=== PATIENT | male | born 1940 | race Caucasian/White ===

== ENCOUNTER 2018-04-21 12:56 | Inpatient (IN) ==
--- NOTE | 2018-04-21 15:04 | ED ---
HPI General Chief Complaint: Altered Mental Status Stated Complaint: altered mental status-[place] [employer] Time Seen by Provider: 04/21/18 14:45 Source: RN notes reviewed and police Mode of arrival: other (police) Limitations: altered mental status History of Present Illness HPI Narrative: Patient is a 77-year-old male here today via police patrol officer under an involuntary psych evaluation. Her police paperwork stated that patient was standing in his strangers yard looking for an address to give his son to come pick him up he had also been incontinent urine. Patient was unable to provide any information regarding where he lived or family members information per he knew that he was in [facility] but he did not know where he came from or where he was planning on going. Nursing states that when they checked him and he was awake alert and oriented. At this time patient having garbled speech, poor eye contact and is just answering questions with yes no answers he is not speaking in complete sentences. He is a poor historian I do not have any medical history on him at this time. MD complaint: Reports altered mental status Onset (ago): unknown Relieving factors: none Exacerbating factors: none Related Data Home Medications Medication Instructions Recorded Confirmed Unable to Obtain Home Meds 04/21/18 04/21/18 Allergies Allergy/AdvReac Type Severity Reaction Status Date / Time No Known Allergies Allergy Verified 04/21/18 14:50 Review of Systems ROS Unobtainable ROS Unobtainable: unobtainable due to mental status PMFSH Medical History Medical History Lymphoma (Acute) Social History Social History Substance History: No History of Abuse Second Hand Smoke Exposure: Yes Smoking Status: Current every day smoker Tobacco Type: Cigarettes How Often Do You Have a Drink Containing Alcohol: 2 to 3 times a week Recent Travel in [facility] within the Last 8 Weeks: No Recent Out of Country Travel within the Last 8 Weeks: No Exam Narrative Exam Narrative: GENERAL: Pt is flushed, underweight, very thin elderly male. SKIN: Focused skin assessment warm/dry. Flushed HEAD: Atraumatic. Normocephalic. EYES: Pupils equal and round. No scleral icterus. No injection or drainage. ENT: No nasal bleeding or discharge. Mucous membranes pink and moist. NECK: Trachea midline. No JVD. CARDIOVASCULAR: Regular rate and rhythm. No murmur appreciated. Heart sounds are distant. RESPIRATORY: No accessory muscle use. Clear to auscultation. Breath sounds equal bilaterally. Diminished throughout. GASTROINTESTINAL: Abdomen soft, non-tender, nondistended. Hepatic and splenic margins not palpable. MUSCULOSKELETAL: No obvious deformities. No clubbing. No cyanosis. No edema. NEUROLOGICAL: Awake and alert. No obvious cranial nerve deficits. Motor grossly within normal limits. Normal speech. PSYCHIATRIC: Withdrawn mood and affect, poor eye contact; insight and judgment abnormal. Course Initial Documented Vital Signs Temperature 98.0 F 04/21/18 13:00 Pulse Rate 118 H 04/21/18 13:00 Respiratory Rate 16 04/21/18 13:00 Blood Pressure 128/84 04/21/18 13:00 Pulse Oximetry 99 04/21/18 13:00 Last Documented Vital Signs Temperature 98.0 F 04/21/18 13:00 Pulse Rate 130 H 04/21/18 23:07 Respiratory Rate 14 04/21/18 23:07 Blood Pressure 148/92 H 04/21/18 23:07 Pulse Oximetry 98 04/21/18 23:07 Medical Decision Making [facility] Narrative Medical decision making narrative: Medical decision making narrative: During the course of the patients emergency department visit, the patients history, examination, and differential diagnosis were reviewed with the patient. The patient was placed on a hotel room attendant with oximetry and frequent blood pressure monitoring. The patient was initially provided lab work, UA, UDS, EKG, CT brain, chest x- ray. Also administered 1 L normal saline bolus as heart rate was in the 120s when he initially came in. I reevaluated patient has heart rate is down to approximately 110 bpm blood pressure is 114/78 respirations 16 temperature is 98.0 oxygen saturation on room air is 90%. EKG with some artifact showing a rate of 126, WV interval is 208, QRS is 94. Nonspecific T wave changes no STEMI. EKG was signed off by Dr. Syed. The patients laboratory studies were reviewed and remarkable for Mild elevation in MCV and MCH mild elevation in neutrophils negative salicylates negative acetaminophen GFR 62, Cr is 1.15, glucose is 68 AST is 93 urine drug screen is negative, serum alcohol is negative. Radiology studies were reviewed and remarkable for Atrophy and white matter disease noted on CT. CXR No acute cardiopulmonary disease. There is no evidence of pneumonia. I spoke with patient at 1800 he is still not making any sense he states he wonders where his brother is he is unsure how he got here or why he is here. He currently denies any suicidal or homicidal ideation he is cleared for psychiatric evaluation at this time however this could be the beginnings of dementia versus psychotic episode. Patient okay to eat and drink he is tolerating fluids and food at this time no acute distress. Medical Screen Exam Complete: Yes Emergency Medical Condition: Yes Medical Screen Exam Complete: Yes Emergency Medical Condition: Yes Lab Data Lab results reviewed: Yes I reviewed the patient's lab results. Result diagrams: 04/21/18 13:30 04/21/18 13:30 Lab Results 04/21/18 04/21/18 04/21/18 Range/Units 13:30 13:30 13:30 WBC 6.3 (4.0-11.0) th/mm3 RBC 4.29 L (4.50-5.90) mil/mm3 Hgb 15.1 (13.0-17.0) gm/dL Hct 44.8 (39.0-51.0) % MCV 104.3 H (80.0-100.0) fL MCH 35.1 H (27.0-34.0) pg MCHC 33.7 (32.0-36.0) % RDW 14.4 (11.6-17.2) % Plt Count 180 (150-450) th/mm3 MPV 8.8 (7.0-11.0) fL Neut % (Auto) 77.3 H (16.0-70.0) % Lymph % (Auto) 14.0 (9.0-44.0) % [place] % (Auto) 7.6 (0.0-8.0) % Eos % (Auto) 0.4 (0.0-4.0) % Baso % (Auto) 0.7 (0.0-2.0) % Neut # (Auto) 4.9 (1.8-7.7) th/mm3 Lymph # (Auto) 0.9 L (1.0-4.8) th/mm3 [place] # (Auto) 0.5 (0.0-0.9) th/mm3 Eos # (Auto) 0.0 (0.0-0.4) th/mm3 Baso # (Auto) 0.0 (0.0-0.2) th/mm3 WBC Differential . Differential Comment Auto diff final Sodium (136-145) meq/L Potassium (3.5-5.1) meq/L Chloride (98-107) meq/L Carbon Dioxide (21.0-32.0) meq/L Anion Gap (5-15) meq/L BUN (7-18) mg/dL Creatinine (0.60-1.30) mg/dL Estimated GFR (>89) mL/min Random Glucose (74-106) mg/dL Calcium (8.5-10.1) mg/dL Magnesium (1.5-2.5) mg/dL Total Bilirubin (0.2-1.0) mg/dL AST (15-37) U/L ALT (12-78) U/L Alkaline Phosphatase (45-117) U/L Total Protein (6.4-8.2) g/dL Albumin (3.4-5.0) g/dL TSH (0.358-3.740) uIU/mL Urine Color (Yellw/Straw) Urine Clarity (Clear) Urine pH (5.0-8.5) Ur Specific [place] (1.002-1.035) Urine Protein (Neg-Trace) mg/dL Urine Glucose (UA) (Negative) mg/dL Urine Ketones (Negative) mg/dL Urine Occult Blood (Negative) Urine Nitrate (Negative) Urine Bilirubin (Negative) Urine Urobilinogen (Less than 2) mg/dL Ur Leukocyte Esterase (Negative) Urine RBC (0-3) /hpf Urine WBC (0-5) /hpf Urine Mucus (Occasional) /lpf Micro UA Comment Ur Microscopic Review Urine Culture Comments Salicylates Less than 1.7 L (2.8-20.0) mg/dL Urine Opiates Screen (Neg) Acetaminophen Less than 2.0 L (10.0-30.0) mcg/mL Ur Barbiturates Screen (Neg) Ur Amphetamines Screen (Neg) U Benzodiazepines Scrn (Neg) Urine Cocaine Screen (Neg) U Cannabinoids Screen (Neg) Serum Alcohol (0-5) mg/dL 04/21/18 04/21/18 04/21/18 Range/Units 13:30 13:30 13:30 WBC (4.0-11.0) th/mm3 RBC (4.50-5.90) mil/mm3 Hgb (13.0-17.0) gm/dL Hct (39.0-51.0) % MCV (80.0-100.0) fL MCH (27.0-34.0) pg MCHC (32.0-36.0) % RDW (11.6-17.2) % Plt Count (150-450) th/mm3 MPV (7.0-11.0) fL Neut % (Auto) (16.0-70.0) % Lymph % (Auto) (9.0-44.0) % [place] % (Auto) (0.0-8.0) % Eos % (Auto) (0.0-4.0) % Baso % (Auto) (0.0-2.0) % Neut # (Auto) (1.8-7.7) th/mm3 Lymph # (Auto) (1.0-4.8) th/mm3 [place] # (Auto) (0.0-0.9) th/mm3 Eos # (Auto) (0.0-0.4) th/mm3 Baso # (Auto) (0.0-0.2) th/mm3 WBC Differential Differential Comment Sodium 142 (136-145) meq/L Potassium 3.9 (3.5-5.1) meq/L Chloride 108 H (98-107) meq/L Carbon Dioxide 22.0 (21.0-32.0) meq/L Anion Gap 12 (5-15) meq/L BUN 29 H (7-18) mg/dL Creatinine 1.15 (0.60-1.30) mg/dL Estimated GFR 62 L (>89) mL/min Random Glucose 68 L (74-106) mg/dL Calcium 8.8 (8.5-10.1) mg/dL Magnesium 2.3 (1.5-2.5) mg/dL Total Bilirubin 1.0 (0.2-1.0) mg/dL AST 93 H (15-37) U/L ALT 77 (12-78) U/L Alkaline Phosphatase 83 (45-117) U/L Total Protein 7.2 (6.4-8.2) g/dL Albumin 3.9 (3.4-5.0) g/dL TSH 1.020 (0.358-3.740) uIU/mL Urine Color Yellow (Yellw/Straw) Urine Clarity Clear (Clear) Urine pH 5.0 (5.0-8.5) Ur Specific [place] 1.024 (1.002-1.035) Urine Protein Negative (Neg-Trace) mg/dL Urine Glucose (UA) Negative (Negative) mg/dL Urine Ketones Trace H (Negative) mg/dL Urine Occult Blood Negative (Negative) Urine Nitrate Negative (Negative) Urine Bilirubin Negative (Negative) Urine Urobilinogen Less than 2 (Less than 2) mg/dL Ur Leukocyte Esterase Negative (Negative) Urine RBC Less than 1 (0-3) /hpf Urine WBC 1 (0-5) /hpf Urine Mucus Few H (Occasional) /lpf Micro UA Comment Culture not ind Ur Microscopic Review Not Reportable Urine Culture Comments Culture not ind Salicylates (2.8-20.0) mg/dL Urine Opiates Screen Neg (Neg) Acetaminophen (10.0-30.0) mcg/mL Ur Barbiturates Screen Neg (Neg) Ur Amphetamines Screen Neg (Neg) U Benzodiazepines Scrn Neg (Neg) Urine Cocaine Screen Neg (Neg) U Cannabinoids Screen Neg (Neg) Serum Alcohol Less than 3 (0-5) mg/dL Imaging Data Radiologist's impression: Chest X-Ray 04/21/18 14:50 CONCLUSION: No acute cardiopulmonary disease. There is no evidence of pneumonia. Head CT 04/21/18 14:50 CONCLUSION: 1. Atrophy and white matter disease. . Discharge Plan Discharge Disposition Patient Disposition: Sign Out(ED Internal Use Only) Discharge Condition Condition: Stable Discharge Details Diagnosis: Altered mental status Physicians Team ED Provider: Amanda Quan ED Midlevel Provider: Cris Nova Primary Care Provider: Primary Care MaraiSelma Rxs /Orders / Referrals /Forms Prescriptions: No Action Unable to Obtain Home Meds RF: 0 Status ED Status: Medically Cleared
--- NOTE | 2018-04-21 15:32 | XR ---
EXAM DATE: 04/21/2018 3:28 PM EST AGE/SEX: 77 years / Male INDICATIONS: . Cough. CLINICAL DATA: This is the patient's initial encounter. Patient reports that signs and symptoms have been present for 1 day and indicates a pain score of 0/10. MEDICAL/SURGICAL HISTORY: Non-responsive. . Infusaport. COMPARISON: No prior exams available for comparison. FINDINGS: PA and lateral views of the chest demonstrate the lungs to be symmetrically aerated without evidence of mass, infiltrate or effusion. The cardiomediastinal contours are unremarkable. Osseous structures are intact. There is a right sided implantable port catheter with the tip in the superior vena cava. CONCLUSION: No acute cardiopulmonary disease. There is no evidence of pneumonia. Electronically signed by: Crispin Cervantes MD 04/21/2018 3:31 PM EST
[2018-04-21 16:31] LABS: Amphetamine Screen,Urine Neg (Neg); Barbiturate Screen,Urine Neg (Neg); Cannabinoid Screen,Urine Neg (Neg); Cocaine Screen,Urine Neg (Neg)
[2018-04-21 16:34] LABS: Bilirubin,Urine Negative (Negative); Clarity,Urine Clear (Clear); Color,Urine Yellow (Yellw/Straw); Glucose,Urine (UA) Negative (Negative); Leukocyte Esterase,Urine Negative (Negative); Mucus,Urine Few /lpf (Occasional); Nitrite,Urine Negative (Negative); Specific Gravity,Urine 1.024 (1.002-1.035)
[2018-04-21 16:40] LABS: Baso % (Auto) 0.7 % (0.0-2.0); Eos % (Auto) 0.4 % (0.0-4.0); Hematocrit 44.8 % (39.0-51.0); Hemoglobin 15.1 gm/dL (13.0-17.0); Lymph # (Auto) 0.9 th/mm3 (1.0-4.8); Mean Corpuscular HGB Conc 33.7 % (32.0-36.0); Mean Corpuscular Hemoglobin 35.1 pg (27.0-34.0); Mean Corpuscular Volume 104.3 fL (80.0-100.0); Mean Platelet Volume 8.8 fL (7.0-11.0); Mono # (Auto) 0.5 th/mm3 (0.0-0.9); Mono % (Auto) 7.6 % (0.0-8.0); Neut # (Auto) 4.9 th/mm3 (1.8-7.7); Neut % (Auto) 77.3 % (16.0-70.0); Platelet Count 180 th/mm3 (150-450); Red Blood Count 4.29 mil/mm3 (4.50-5.90); Red Cell Distribution Width 14.4 % (11.6-17.2); White Blood Count 6.3 th/mm3 (4.0-11.0)
[2018-04-21 16:43] LABS: Opiate Screen,Urine Neg (Neg)
--- NOTE | 2018-04-21 17:24 | CT ---
EXAM DATE: 04/21/2018 5:18 PM EST AGE/SEX: 77 years / Male INDICATIONS: Altered mental status. CLINICAL DATA: This is the patient's initial encounter. Patient reports that signs and symptoms have been present for 1 day and indicates a pain score of 0/10. MEDICAL/SURGICAL HISTORY: None. None. RADIATION DOSE: 44.87 CTDI (mGy) COMPARISON: No prior exams available for comparison. TECHNIQUE: CT of the head without contrast. Using automated exposure control and adjustment of the mA and/or kV according to patient size, radiation dose was kept as low as reasonably achievable to ob tain optimal diagnostic quality images. DICOM format image data is available electronically for revi ew and comparison. FINDINGS: There is diffuse prominence of the CSF spaces, ventricles and cisterns. There is patchy hypodensity i n the bilateral centrum semiovale and periventricular white matter. No fractures are seen. No signs o f intracranial hemorrhage or mass. No signs of acute infarct. CONCLUSION: 1. Atrophy and white matter disease. . Electronically signed by: Blas Granda MD 04/21/2018 5:23 PM EST
[2018-04-21 17:42] LABS: Alkaline Phosphatase 83 U/L (45-117); Total Protein 7.2 g/dL (6.4-8.2)
[2018-04-21 17:46] LABS: Alanine Aminotransferase 77 U/L (12-78); Albumin 3.9 g/dL (3.4-5.0); Anion Gap 12 meq/L (5-15); Aspartate Aminotransferase 93 U/L (15-37); Blood Urea Nitrogen 29 mg/dL (7-18); Calcium 8.8 mg/dL (8.5-10.1); Chloride 108 meq/L (98-107); Glomerular Filtration Rate 62 mL/min (>89); Glucose,Random 68 mg/dL (74-106); Magnesium 2.3 mg/dL (1.5-2.5); Potassium 3.9 meq/L (3.5-5.1); Sodium 142 meq/L (136-145)
[2018-04-21] MEDS ORDERED: Sodium Chlor 0.9% Inj 500 ML IV.SIG SCH (18:00)
--- NOTE | 2018-04-22 08:35 | ECG ---
Date Performed: 04/21/2018 Time Performed: 16:58:47 PTAGE: 77 years EKG: Sinus tachycardia NONSPECIFIC ST & T-WAVE ABNORMALITY ABNORMAL RHYTHM ECG PREVIOUS TRACING : 03/08/2000 10.48 DOCTOR: Cristiano Valadez Interpretating Date/Time 04/22/2018 08:32:49
--- NOTE | 2018-04-22 10:20 | ED ---
HPI - Psych - General Source: patient, family, RN notes reviewed, police Mode of arrival: other (police) Limitations: altered mental status - History of Present Illness complaint: other Onset (ago): hour(s) Duration: intermittent History of same: No Relieving factors: none Exacerbating factors: none Context: other (Possibly not caring for herself) Associated psychiatric symptoms: none Associated symptoms: denies other symptoms Treatments prior to arrival: placed on mental health hold If self harm: other (Denies any) - General Chief Complaint: Altered Mental Status Stated Complaint: altered mental status-[place] FLORES Time Seen by Provider: 04/22/18 09:45 - History of Present Illness HPI Narrative: History of Present Illness HPI Narrative: Patient is a 77-year-old, male, retired from [employer], lives by himself, with no previous psychiatric history, here via police manager under an involuntary psych evaluation. The [place] act states that the patient was standing in a stranger's yard looking for an address to give to his son to pick him up. He had urinated his pants that had no cell phone to contact his son. He reported he had not eaten in 19 hours and could not provide any more information for home, family or friends. The patient was brought to the emergency department for further evaluation. On his arrival to the ED he is described as" having garbled speech, poor eye contact and is just answering questions with yes no answers he is not speaking in complete sentences. He is a poor historian I do not have any medical history on him at this time." The patients laboratory studies were reviewed and remarkable for Mild elevation in MCV and MCH mild elevation in neutrophils negative salicylates negative acetaminophen GFR 62, Cr is 1.15, glucose is 68 AST is 93 urine drug screen is negative, serum alcohol is negative. Radiology studies remarkable for Atrophy and white matter disease noted on CT. CXR No acute cardiopulmonary disease. There is no evidence of pneumonia. Patient was monitored overnight in the ED and he presented no behavioral concerns. EMR is reviewed the patient with no previous contact with [facility] psychiatry. Patient is seen. He is found finishing his breakfast. He is alert, oriented to person, tells me is 2017, he knows that the president is Gamal Nicholasjared. When asked his age he states " age is nothing but a number and you are as old as you feel." The patient answers most questions appropriately with complete sentences. He tells me that he is unaware of why they brought him to the hospital and does admit that he was some more around [place]. Tells me he has been having some difficulty with neighbors and that he was walking around the neighborhood when a lady asked him if he was okay and that he was brought to the hospital. He tells me that he had been walking around probably since Saturday and that he had not eaten in several hours. The patient does not appear to be responding to internal stimuli. He denies any hallucinations. He denies any suicidal or homicidal ideation and when asked directly states" I let mother nature take care of that." I placed a call to his son Luke, at [phone]. His son tells me that the patient has no previous psychiatric history and that this is his first incident of wandering. Patient moved to [facility] in October and previously had been living with the son in [facility]. Son tells me that he received a call from a friend on Saturday telling him that they had not seen his dad for several days. He questions whether his father is taking care of himself. He did corroborate that the father had several storage facilities where he is keeping his belongings. The son did tell me he will drive back to [facility] today to pick his dad up from the hospital. (Jojo Cerna) - Related Data Home Medications Medication Instructions Recorded Confirmed Unable to Obtain Home Meds 04/21/18 04/21/18 Allergies Allergy/AdvReac Type Severity Reaction Status Date / Time No Known Allergies Allergy Verified 04/21/18 14:50 [facility] History Provided By: Patient - Medical History Medical History: Medical History (Last Updated 04/21/18 @ 16:30 by Jeanette Holbrook RN) Lymphoma - Social History I have reviewed the patient's Social History: Yes - Tobacco History Second Hand Smoke Exposure: Yes Tobacco Use In Past 30 Days: Yes Smoking Status: Current every day smoker Tobacco Type: Cigarettes - Alcohol History How Often Do You Have a Drink Containing Alcohol: 2 to 3 times a week - Substance Use History Substance History: No History of Abuse - Travel History Recent Travel in the [facility] Within the Last 8 Weeks: No Recent Travel Out of the Country Within the Last 8 Weeks: No - Immunization History Tetanus Immunization: <5 Years Psychiatric History - Psychiatric History Psychiatric Treatment History: Denies Previous Treatment History of Inpatient Treatment: No Firearms in Home: No - Psychiatric History None reported by patient and by family members. (Jojo Cerna) - Legal History None reported (Jojo Cerna) - Family Psychiatric History None reported (Jojo Cerna) Physical Exam - General Limitations: altered mental status Mental Status Examination Consciousness: Alert Orientation: x4 Motor Activity: Normal gait Speech: Unremarkable Language: Adequate Fund of Knowledge: Adequate Attention and Concentration: Adequate Memory: Impaired Mood: Appropriate Affect: Appropriate Thought Process & Associations: Intact, Logical, Goal directed Thought Content: Appropriate Hallucination Type: None Delusion Type: None Suicidal Ideation: No Suicidal Plan: No Suicidal Intention: No Homicidal Ideation: No Homicidal Plan: No Homicidal Intention: No Insight: Poor Judgment: Poor Initial Documented Vital Signs Temperature 98.0 F 04/21/18 13:00 Pulse Rate 118 H 04/21/18 13:00 Respiratory Rate 16 04/21/18 13:00 Blood Pressure 128/84 04/21/18 13:00 Pulse Oximetry 99 04/21/18 13:00 Last Documented Vital Signs Temperature 97.8 F 04/22/18 07:00 Pulse Rate 88 04/22/18 14:01 Respiratory Rate 16 04/22/18 14:01 Blood Pressure 118/78 04/22/18 14:01 Pulse Oximetry 100 04/22/18 14:01 [facility] - Psych - Diagnosis (1) Altered mental status Code(s): R41.82 - Altered mental status, unspecified Status: Acute - Lab Data Result diagrams: 04/21/18 13:30 04/21/18 13:30 - [facility] Narrative Medical decision making narrative: At the time of this evaluation the patient does not present any criteria to remain under the [place] act. He presents no evidence of unstable mental illness as defined under such act. He has no previous psychiatric history and is denying any suicidal or homicidal ideation, intent or plan. There is no evidence of any psychosis. However the patient may not have been taking care of himself and most likely had been wandering around the neighborhood for several hours. He admits he had not been eating or drinking. The patient at this time is not safe to be discharge to his own care. His son has agreed to come to the hospital today and pick him up. The BA is lifted. Case discussed with provider Cris in D pod. (Jojo Cerna) - Lab Data Lab Results 04/21/18 04/21/18 04/21/18 Range/Units 13:30 13:30 13:30 WBC 6.3 (4.0-11.0) th/mm3 RBC 4.29 L (4.50-5.90) mil/mm3 Hgb 15.1 (13.0-17.0) gm/dL Hct 44.8 (39.0-51.0) % MCV 104.3 H (80.0-100.0) fL MCH 35.1 H (27.0-34.0) pg MCHC 33.7 (32.0-36.0) % RDW 14.4 (11.6-17.2) % Plt Count 180 (150-450) th/mm3 MPV 8.8 (7.0-11.0) fL Neut % (Auto) 77.3 H (16.0-70.0) % Lymph % (Auto) 14.0 (9.0-44.0) % Gray % (Auto) 7.6 (0.0-8.0) % Eos % (Auto) 0.4 (0.0-4.0) % Baso % (Auto) 0.7 (0.0-2.0) % Neut # (Auto) 4.9 (1.8-7.7) th/mm3 Lymph # (Auto) 0.9 L (1.0-4.8) th/mm3 Gray # (Auto) 0.5 (0.0-0.9) th/mm3 Eos # (Auto) 0.0 (0.0-0.4) th/mm3 Baso # (Auto) 0.0 (0.0-0.2) th/mm3 WBC Differential . Differential Comment Auto diff final Sodium (136-145) meq/L Potassium (3.5-5.1) meq/L Chloride (98-107) meq/L Carbon Dioxide (21.0-32.0) meq/L Anion Gap (5-15) meq/L BUN (7-18) mg/dL Creatinine (0.60-1.30) mg/dL Estimated GFR (>89) mL/min Random Glucose (74-106) mg/dL Calcium (8.5-10.1) mg/dL Magnesium (1.5-2.5) mg/dL Total Bilirubin (0.2-1.0) mg/dL AST (15-37) U/L ALT (12-78) U/L Alkaline Phosphatase (45-117) U/L Total Protein (6.4-8.2) g/dL Albumin (3.4-5.0) g/dL TSH (0.358-3.740) uIU/mL Urine Color (Yellw/Straw) Urine Clarity (Clear) Urine pH (5.0-8.5) Ur Specific [place] (1.002-1.035) Urine Protein (Neg-Trace) mg/dL Urine Glucose (UA) (Negative) mg/dL Urine Ketones (Negative) mg/dL Urine Occult Blood (Negative) Urine Nitrate (Negative) Urine Bilirubin (Negative) Urine Urobilinogen (Less than 2) mg/dL Ur Leukocyte Esterase (Negative) Urine RBC (0-3) /hpf Urine WBC (0-5) /hpf Urine Mucus (Occasional) /lpf Micro UA Comment Ur Microscopic Review Urine Culture Comments Salicylates Less than 1.7 L (2.8-20.0) mg/dL Urine Opiates Screen (Neg) Acetaminophen Less than 2.0 L (10.0-30.0) mcg/mL Ur Barbiturates Screen (Neg) Ur Amphetamines Screen (Neg) U Benzodiazepines Scrn (Neg) Urine Cocaine Screen (Neg) U Cannabinoids Screen (Neg) Serum Alcohol (0-5) mg/dL 04/21/18 04/21/18 04/21/18 Range/Units 13:30 13:30 13:30 WBC (4.0-11.0) th/mm3 RBC (4.50-5.90) mil/mm3 Hgb (13.0-17.0) gm/dL Hct (39.0-51.0) % MCV (80.0-100.0) fL MCH (27.0-34.0) pg MCHC (32.0-36.0) % RDW (11.6-17.2) % Plt Count (150-450) th/mm3 MPV (7.0-11.0) fL Neut % (Auto) (16.0-70.0) % Lymph % (Auto) (9.0-44.0) % Gray % (Auto) (0.0-8.0) % Eos % (Auto) (0.0-4.0) % Baso % (Auto) (0.0-2.0) % Neut # (Auto) (1.8-7.7) th/mm3 Lymph # (Auto) (1.0-4.8) th/mm3 Gray # (Auto) (0.0-0.9) th/mm3 Eos # (Auto) (0.0-0.4) th/mm3 Baso # (Auto) (0.0-0.2) th/mm3 WBC Differential Differential Comment Sodium 142 (136-145) meq/L Potassium 3.9 (3.5-5.1) meq/L Chloride 108 H (98-107) meq/L Carbon Dioxide 22.0 (21.0-32.0) meq/L Anion Gap 12 (5-15) meq/L BUN 29 H (7-18) mg/dL Creatinine 1.15 (0.60-1.30) mg/dL Estimated GFR 62 L (>89) mL/min Random Glucose 68 L (74-106) mg/dL Calcium 8.8 (8.5-10.1) mg/dL Magnesium 2.3 (1.5-2.5) mg/dL Total Bilirubin 1.0 (0.2-1.0) mg/dL AST 93 H (15-37) U/L ALT 77 (12-78) U/L Alkaline Phosphatase 83 (45-117) U/L Total Protein 7.2 (6.4-8.2) g/dL Albumin 3.9 (3.4-5.0) g/dL TSH 1.020 (0.358-3.740) uIU/mL Urine Color Yellow (Yellw/Straw) Urine Clarity Clear (Clear) Urine pH 5.0 (5.0-8.5) Ur Specific [place] 1.024 (1.002-1.035) Urine Protein Negative (Neg-Trace) mg/dL Urine Glucose (UA) Negative (Negative) mg/dL Urine Ketones Trace H (Negative) mg/dL Urine Occult Blood Negative (Negative) Urine Nitrate Negative (Negative) Urine Bilirubin Negative (Negative) Urine Urobilinogen Less than 2 (Less than 2) mg/dL Ur Leukocyte Esterase Negative (Negative) Urine RBC Less than 1 (0-3) /hpf Urine WBC 1 (0-5) /hpf Urine Mucus Few H (Occasional) /lpf Micro UA Comment Culture not ind Ur Microscopic Review Not Reportable Urine Culture Comments Culture not ind Salicylates (2.8-20.0) mg/dL Urine Opiates Screen Neg (Neg) Acetaminophen (10.0-30.0) mcg/mL Ur Barbiturates Screen Neg (Neg) Ur Amphetamines Screen Neg (Neg) U Benzodiazepines Scrn Neg (Neg) Urine Cocaine Screen Neg (Neg) U Cannabinoids Screen Neg (Neg) Serum Alcohol Less than 3 (0-5) mg/dL
--- NOTE | 2018-04-22 23:07 | P.HPIM ---
History of Present Illness Service: [facility] Primary Care Physician: No Primary Care Physician Chief Complaint: Patient found wandering in a neighborhood History of Present Illness: Mr. Guerrero is a 77 year-old male with a possible history of lymphoma who presented to the ER on 04/22/2018 escorted by the police under [place] Act for evaluation after he was found disoriented and wandering around a neighborhood in [place] with urine soaked pants looking for his son. He was evaluated by the psychiatric HIGHWAY DESIGN ENGINEER for psychiatry and she lifted the Batista Act following her evaluation. The patient is being kept here pending placement after the patient's family refused to pick him up from the hospital [facility]. He is unable to provide me with any specific medical information. He does acknowledge being diagnosed with lymphoma but he is tangential when discussing this and is unable to tell me any of the treatment he had for it or the names of any doctors he saw for it. He denies taking any medications. He can seem very oriented at times but fails to be able to provide any specific details about himself and he is a very difficult and poor historian. Review of Systems unobtainable due to mental status PMFSH - History History Provided By: Patient - Medical History Medical History: Medical History (Last Updated 04/22/18 @ 23:31 by LEIDY Fontenot) Lymphoma Onset Date: ~1947 - Surgical History Surgical History: Surgical History (Last Updated 04/22/18 @ 23:31 by LEIDY Fontenot) History of tonsillectomy - Family History Family History: Family History (Last Updated 04/22/18 @ 23:31 by LEIDY Fontenot) Other No significant family history - Social History I have reviewed the patient's Social History: Yes - Tobacco History Second Hand Smoke Exposure: Yes Tobacco Use In Past 30 Days: Yes Smoking Status: Current every day smoker Tobacco Type: Cigarettes - Alcohol History How Often Do You Have a Drink Containing Alcohol: 2 to 3 times a week - Substance Use History Substance History: No History of Abuse - Travel History Recent Travel in the [facility] Within the Last 8 Weeks: No Recent Travel Out of the Country Within the Last 8 Weeks: No - Immunization History Tetanus Immunization: <5 Years Medications and Allergies Allergies Allergy/AdvReac Type Severity Reaction Status Date / Time No Known Allergies Allergy Verified 04/21/18 14:50 Home Medications Medication Instructions Recorded Confirmed Type Unable to Obtain Home Meds 04/21/18 04/21/18 History Exam Vital signs: Vital Signs 04/22/18 07:00 04/22/18 14:01 04/22/18 18:44 Temperature 97.8 F 98.0 F Pulse Rate 93 H 88 74 Respiratory Rate 16 16 16 Blood Pressure 112/72 118/78 124/78 Pulse Oximetry 99 100 99 04/22/18 22:00 Temperature Pulse Rate 96 H Respiratory Rate 18 Blood Pressure 130/80 Pulse Oximetry 100 Intake & Output 04/22/18 04/22/18 04/23/18 06:59 18:59 06:59 Output Total 250 / 250 Balance -250 / -250 Output: Urine 250 / 250 Narrative: GENERAL: This is an disheveled, unkempt and tangential elderly male patient, in no apparent distress. SKIN: Scratches noted on left upper leg. Cool and dry. HEAD: Atraumatic. Normocephalic. EYES: No scleral icterus. No injection or drainage. ENT: Nose without bleeding, purulent drainage. Poor dentition with missing teeth. NECK: Trachea midline. No JVD or lymphadenopathy. CARDIOVASCULAR: Regular rate and rhythm without murmurs, gallops, or rubs. RESPIRATORY: Clear to auscultation. Breath sounds equal bilaterally. No wheezes , rales, or rhonchi. GASTROINTESTINAL: Abdomen soft, non-tender, nondistended. No guarding. MUSCULOSKELETAL: Extremities without clubbing, cyanosis, or edema. No calf tenderness. NEUROLOGICAL: Awake and alert. Motor and sensory grossly within normal limits. Normal speech. Poor recall/memory regarding address, situations, medical history. . Results - Labs CBC & Chem 7: 04/21/18 13:30 04/21/18 13:30 Caprini VTE Risk Assessment Caprini VTE Risk Assessment: Moderate/High Risk (score >= 2) Caprini Risk Assessment Model: Point Value = 1 Point Value = 2 Point Value = 3 Point Value = 5 Age 41-60 Minor surgery BMI > 25 kg/m2 Swollen legs Varicose veins or History of unexplained or recurrent spontaneous Oral contraceptives or hormone replacement Sepsis (< 1 month) Serious lung disease, including pneumonia (< 1 month) Abnormal pulmonary function Acute myocardial infarction Congestive heart failure (< 1 month) History of inflammatory bowel disease Medical patient at bed rest Age 61-74 Arthroscopic surgery Major open surgery (> 45 min) Laparoscopic surgery (> 45 min) Malignancy Confined to bed (> 72 hours) Immobilizing plaster cast Central venous access Age >= 75 History of VTE Family history of VTE Factor V Leiden Prothrombin [id number] Lupus anticoagulant Anticardiolipin antibodies Elevated serum homocysteine Heparin-induced thrombocytopenia Other congenital or acquired thrombophilia Stroke (< 1 month) Elective arthroplasty Hip, pelvis, or leg fracture Acute spinal cord injury (< 1 month) Prophylaxis Regimen: Total Risk Factor Score Risk Level Prophylaxis Regimen 0-1 Low Early ambulation 2 Moderate Order ONE of the following: *Sequential Compression Device (SCD) *Heparin 5000 units SQ BID 3-4 Higher Order ONE of the following medications: *Heparin 5000 units SQ TID *Enoxaparin/Lovenox 40 mg SQ daily (WT < 150 kg, CrCl > 30 mL/min) *Enoxaparin/Lovenox 30 mg SQ daily (WT < 150 kg, CrCl > 10-29 mL/min) *Enoxaparin/Lovenox 30 mg SQ BID (WT < 150 kg, CrCl > 30 mL/min) AND/OR *Sequential Compression Device (SCD) 5 or more Highest Order ONE of the following medications: *Heparin 5000 units SQ TID (Preferred with Epidurals) *Enoxaparin/Lovenox 40 mg SQ daily (WT < 150 kg, CrCl > 30 mL/min) *Enoxaparin/Lovenox 30 mg SQ daily (WT < 150 kg, CrCl > 10-29 mL/min) *Enoxaparin/Lovenox 30 mg SQ BID (WT < 150 kg, CrCl > 30 mL/min) AND *Sequential Compression Device (SCD) Assessment and Plan - Plan Mr. Guerrero is a 77 year-old male with a possible history of lymphoma who presented to the ER on 04/22/2018 escorted by the police under [employer] Act for evaluation after he was found disoriented and wandering around a neighborhood in [place] with urine soaked pants looking for his son. He was evaluated by the psychiatric HIGHWAY DESIGN ENGINEER for psychiatry and she lifted the Batista Act following her evaluation. The patient is being kept here pending placement after the patient's family refused to pick him up from the hospital tonight. He is unable to provide me with any specific medical information. He does acknowledge being diagnosed with lymphoma but he is tangential when discussing this and is unable to tell me any of the treatment he had for it or the names of any doctors he saw for it. He denies taking any medications. He can seem very oriented at times but fails to be able to provide any specific details about himself and he is a very difficult and poor historian. Unsafe discharge -Mandatory outpatient referral to assist with discharge planning/possible residential placement; DCF involved -Hopefully family members will show and can assist with medical history - the patient denies taking any medications at home -Regular diet -Head CT with atrophy and white matter disease -Toxicology negative including alcohol -UA not consistent with UTI -Chest x-ray without acute cardiopulmonary process noted -Blood work consistent with mild dehydration -patient able to take p.o. fluids; no significant findings - continue to monitor DVT prophylaxis -Heparin 5000 units sub q q8h Discussed Condition With: patient, Dr. Steinberg, and RN
[2018-04-23] MEDS: Heparin - SQ 10,000 UNITS/ML Vial SQ SCH ×3 (09:21→21:14)
--- NOTE | 2018-04-23 21:58 | ECG ---
Date Performed: 04/23/2018 Time Performed: 02:59:21 PTAGE: 77 years EKG: ATRIAL FLUTTER/TACHYCARDIA Minimal Voltage criteria for LVH with nonspecific ST changes ABN ORMAL RHYTHM ECG PREVIOUS TRACING : 04/21/2018 16.58 Since the previous tracing, no significant change noted DOCTOR: Fili Shafer Interpretating Date/Time 04/23/2018 21:56:38
[2018-04-24] MEDS: Heparin - SQ 10,000 UNITS/ML Vial SQ SCH ×3 (07:00→21:50)
[2018-04-24 16:30] LABS: Baso % (Auto) 0.8 % (0.0-2.0); Eos # (Auto) 0.2 th/mm3 (0.0-0.4); Eos % (Auto) 3.6 % (0.0-4.0); Hematocrit 40.3 % (39.0-51.0); Hemoglobin 14.1 gm/dL (13.0-17.0); Lymph # (Auto) 0.9 th/mm3 (1.0-4.8); Lymph % (Auto) 17.7 % (9.0-44.0); Mean Corpuscular HGB Conc 34.9 % (32.0-36.0); Mean Corpuscular Hemoglobin 35.3 pg (27.0-34.0); Mean Corpuscular Volume 100.9 fL (80.0-100.0); Mean Platelet Volume 8.7 fL (7.0-11.0); Mono # (Auto) 0.4 th/mm3 (0.0-0.9); Neut # (Auto) 3.5 th/mm3 (1.8-7.7); Neut % (Auto) 69.9 % (16.0-70.0); Platelet Count 153 th/mm3 (150-450); Red Blood Count 3.99 mil/mm3 (4.50-5.90); Red Cell Distribution Width 14.2 % (11.6-17.2)
[2018-04-24 16:53] LABS: Calcium 8.3 mg/dL (8.5-10.1); Carbon Dioxide 27.6 meq/L (21.0-32.0); Magnesium 2.2 mg/dL (1.5-2.5)
[2018-04-24 16:56] LABS: Creatine Kinase 138 U/L (39-308); Troponin I 0.02 ng/mL (0.02-0.05)
[2018-04-24 17:09] LABS: Creatine Kinase MB 4.6 ng/mL (0.5-3.6)
[2018-04-25] MEDS: Heparin - SQ 10,000 UNITS/ML Vial SQ SCH ×4 (05:46→23:35)
--- NOTE | 2018-04-25 08:10 | P.PN ---
Subjective Interval history: The patient was converted from Bedded Outpatient to Observation status due to tachycardia with HR in the 140s. Serial EKGs show atrial flutter and afib with RVR. Telemetry showing afib with RVR, HR ranging 100-140 (increases with exertion). The patient is seen ambulating his room. He denies any current lightheadedness, dizzines, palpitations, chest pain, or shortness of breath. He denies any prior diagnosis of afib or any irregular rhythm. Denies any heart disease. He is able to tell me he's had lymphoma and completed treatment for this in 2016. Physical Exam Vital signs: Vital Signs 04/24/18 13:32 04/24/18 15:59 04/24/18 20:00 Temperature 97.9 F 98.0 F 97.7 F Pulse Rate 129 H 104 H 114 H Respiratory Rate 18 16 20 Blood Pressure 127/85 127/82 120/80 Pulse Oximetry 94 L 100 100 04/24/18 23:58 04/25/18 04:00 04/25/18 07:08 Temperature 97.9 F 97.4 F L 98.2 F Pulse Rate 140 H 118 H 144 H Respiratory Rate 20 16 18 Blood Pressure 128/93 H 130/96 H 134/90 Pulse Oximetry 100 98 100 Intake & Output 04/24/18 04/25/18 04/25/18 18:59 06:59 18:59 Other: Date of Last Bowel Movement 04/22/18 04/24/18 Narrative: GENERAL: Tall thin unkempt appearing elderly male patient in NAD. Ambulating his room. SKIN: Warm and dry. No rash. HEENT: Normocephalic. Atraumatic. Pupils equal and round. Mucous membranes pink and moist. CARDIOVASCULAR: Irregular rate and rhythm. No murmur appreciated. RESPIRATORY: No accessory muscle use. Clear to auscultation. Breath sounds equal bilaterally. GASTROINTESTINAL: Abdomen soft, non-tender, nondistended. Normoactive bowel sounds x4. MUSCULOSKELETAL: No obvious deformities. Extremities without clubbing, cyanosis , or edema. NEUROLOGICAL: Awake and alert. No obvious cranial nerve deficits. Moving all extremities spontaneously. Normal speech. PSYCHIATRIC: Appropriate mood and affect; insight and judgment fair. Results - Labs CBC & Chem 7: 04/24/18 16:04 04/24/18 16:04 Laboratory Results - last 24 hr 04/24/18 04/24/18 04/24/18 16:04 16:04 16:04 WBC 5.0 RBC 3.99 L Hgb 14.1 Hct 40.3 MCV 100.9 H MCH 35.3 H MCHC 34.9 RDW 14.2 Plt Count 153 MPV 8.7 Neut % (Auto) 69.9 Lymph % (Auto) 17.7 [place] % (Auto) 8.0 Eos % (Auto) 3.6 Baso % (Auto) 0.8 Neut # (Auto) 3.5 Lymph # (Auto) 0.9 L [place] # (Auto) 0.4 Eos # (Auto) 0.2 Baso # (Auto) 0.0 WBC Differential . Differential Comment Auto diff final Sodium 142 Potassium 4.0 Chloride 109 H Carbon Dioxide 27.6 Anion Gap 5 BUN 25 H Creatinine 1.25 Estimated GFR 56 L Random Glucose 99 Calcium 8.3 L Magnesium 2.2 Total Creatine Kinase 138 CK-MB (CK-2) 4.6 H Troponin I 0.02 - Imaging Chest X-Ray 04/21/18 14:50 CONCLUSION: No acute cardiopulmonary disease. There is no evidence of pneumonia. Head CT 04/21/18 14:50 CONCLUSION: 1. Atrophy and white matter disease. . Assessment and Plan - Plan Mr. Guerrero is a 77 year-old male with a possible history of lymphoma who presented to the ER on 04/22/2018 escorted by the police under Batista Act for evaluation after he was found disoriented and wandering around a neighborhood in [place] with urine soaked pants looking for his son. He was evaluated by the psychiatric WASTEWATER SUPERVISOR for psychiatry and she lifted the Batista Act following her evaluation. The patient is being kept here pending placement after the patient's family refused to pick him up from the [facility]. He is unable to provide with any specific medical information. He does acknowledge being diagnosed with lymphoma but he is tangential when discussing this and is unable to tell me any of the treatment he had for it or the names of any doctors he saw for it. He denies taking any medications. He can seem very oriented at times but fails to be able to provide any specific details about himself and he is a very difficult and poor historian. Atrial Fibrillation with RVR: acute. HR 100-140s. -monitor on telemetry -[id number] score of 2 due to age although unclear PMH, patient likely poor candidate for anticoagulation due to concern for noncompliance -started on aspirin 325mg and metoprolol 25mg bid -check echocardiogram -consult cardiology Unsafe discharge -Mandatory outpatient referral to assist with discharge planning/possible fpc placement; DCF involved -Hopefully family members will show and can assist with medical history - the patient denies taking any medications at home -Regular diet -Head CT with atrophy and white matter disease -Toxicology negative including alcohol -UA not consistent with UTI -Chest x-ray without acute cardiopulmonary process noted -Blood work consistent with mild dehydration -patient able to take p.o. fluids; no significant findings -continue to monitor DVT prophylaxis-Heparin 5000 units sub q q8h
[2018-04-25] MEDS: Aspirin 325 MG Tablet PO SCH (10:16)
[2018-04-25] MEDS: Metoprolol Tartrate 25 MG Tablet PO SCH ×2 (10:16→20:42)
--- NOTE | 2018-04-25 10:52 | ECG ---
Date Performed: 04/24/2018 Time Performed: 16:22:09 PTAGE: 77 years EKG: ATRIAL FIBRILLATION WITH RAPID VENTRICULAR RESPONSE INCOMPLETE RIGHT BUNDLE BRANCH BLOCK AB NORMAL RHYTHM ECG PREVIOUS TRACING : 04/23/2018 02.59 No significant change from previous tracing noted. DOCTOR: Alex Maier Interpretating Date/Time 04/25/2018 10:51:27
[2018-04-25 11:06] LABS: Bacteria,Urine Moderate /hpf; Bilirubin,Urine Negative (Negative); Clarity,Urine Cloudy (Clear); Glucose,Urine (UA) Negative (Negative); Leukocyte Esterase,Urine Negative (Negative); Mucus,Urine Few /lpf (Occasional); Nitrite,Urine Positive (Negative); Specific Gravity,Urine 1.008 (1.002-1.035)
[2018-04-25 11:07] LABS: Color,Urine Pink (Yellw/Straw)
--- NOTE | 2018-04-25 11:57 | ECHRPT ---
Indication: A FIB FLUTTER CONCLUSIONS Normal left ventricular size. Wall thickness is measured at the upper limits of normal. The left ventricular systolic function is severely reduced with an estimated ejection fraction in th e range of 25-30%. The right ventricular systoilc function is mildly decreased. The left atrial size is moderately dilated. [id number] mitral valve regurgitation. Mild thickening of the aortic valve leaflets. Aortic valve sclerosis is present. Trace aortic valve regurgitation. There is mild tricuspid valve regurgitation. There is estimated mild pulmonary hypertension present (40 mmHg). BP: / HR: Rhythm: Atrial fibrillation Technical Quality: FINDINGS LEFT VENTRICLE Normal left ventricular size. Wall thickness is measured at the upper limits of normal. The left ventricular systolic function is severely reduced with an estimated ejection fraction in th e range of 25-30%. RIGHT VENTRICLE The right ventricular systoilc function is mildly decreased. LEFT ATRIUM The left atrial size is moderately dilated. RIGHT ATRIUM The right atrial size is normal. ATRIAL SEPTUM Thickened atrial septum is noted with morphological features most consistent with a lipomatous atria l septum. AORTA The aortic root and proximal ascending aorta are normal in size on limited imaging. MITRAL VALVE Mitral annular calcification is present. [id number] mitral valve regurgitation. AORTIC VALVE Mild thickening of the aortic valve leaflets. Aortic valve sclerosis is present. Trace aortic valve regurgitation. TRICUSPID VALVE There is mild tricuspid valve regurgitation. There is estimated mild pulmonary hypertension present (40 mmHg). PULMONARY VALVE The pulmonary valve is not well visualized. VESSELS The inferior vena cava is dilated. PERICARDIUM No pericardial effusion. Petrona Naidu MD, FACC (Electronically Signed) Final Date:25 April 2018 11:56
--- NOTE | 2018-04-25 14:32 | P.CONCA ---
History of Present Illness Service: Cardiology Consult date: 04/25/18 Reason for Consult: Atrial fib/flutter, new onset Primary Care Provider: No Primary Care Physician Chief Complaint: Patient found wandering in a neighborhood History of Present Illness: This is a very pleasant 77-year-old male found wondering in a neighborhood on 04/21/18 and was brought into the Emergency Department for further evaluation. He states that he was walking around looking for his son, who was visiting in the area. He is alert but confused to place and time. He denied any CP, pressure, palpitations, dizziness, edema or shortness of breathing at any time. He is a very poor historian and is unable to give a health history. He states that he does not have a PCP or any other doctor at this time. Currently, he denies any CP, pressure, palpitations, dizziness, edema or SOB. Review of Systems All other systems reviewed negative except as stated in HPI [facility] - History History Provided By: Patient - Medical History Medical History: Medical History (Last Reviewed 04/25/18 @ 06:44 by Hernandez Rendon) Lymphoma Onset Date: ~1947 - Surgical History Surgical History: Surgical History (Last Reviewed 04/25/18 @ 06:44 by Hernandez Rendon) History of tonsillectomy - Family History Family History: Family History (Last Updated 04/22/18 @ 23:31 by LEIDY Fontenot) Other No significant family history - Tobacco History Second Hand Smoke Exposure: No Tobacco Use In Past 30 Days: Yes Smoking Status: Never smoker Tobacco Type: Cigarettes - Alcohol History How Often Do You Have a Drink Containing Alcohol: Never - Substance Use History Substance History: No History of Abuse - Travel History Recent Travel in the [place] Within the Last 8 Weeks: No Recent Travel Out of the Country Within the Last 8 Weeks: No - Immunization History Tetanus Immunization: <5 Years Medications and Allergies Allergies Allergy/AdvReac Type Severity Reaction Status Date / Time No Known Allergies Allergy Verified 04/21/18 14:50 Home Medications Medication Instructions Recorded Confirmed Type Unable to Obtain Home Meds 04/21/18 04/21/18 History Active Medications: Active Medications Aspirin (Aspirin) 325 mg PO DAILY [facility] Last Admin: 04/25/18 10:16 Dose: 325 mg Heparin Sodium (Porcine) (Heparin Inj) 5,000 units SQ Q8HR [facility] Last Admin: 04/25/18 05:46 Dose: 5,000 units Lisinopril (Prinivil) 5 mg PO DAILY [facility] Metoprolol Tartrate (Lopressor) 25 mg PO BID [facility] Last Admin: 04/25/18 10:16 Dose: 25 mg Exam Vital signs: Vital Signs 04/24/18 15:59 04/24/18 20:00 04/24/18 23:58 Temperature 98.0 F 97.7 F 97.9 F Pulse Rate 104 H 114 H 140 H Respiratory Rate 16 20 20 Blood Pressure 127/82 120/80 128/93 H Pulse Oximetry 100 100 100 04/25/18 04:00 04/25/18 07:08 04/25/18 10:54 Temperature 97.4 F L 98.2 F 98 F Pulse Rate 118 H 144 H 108 H Respiratory Rate 18 18 Blood Pressure 130/96 H 134/90 138/83 Pulse Oximetry 98 100 100 Intake & Output 04/24/18 04/25/18 04/25/18 18:59 06:59 18:59 Other: Date of Last Bowel Movement 04/22/18 04/24/18 - Constitutional no acute distress - Routine HEENT Exam Head: Present: normocephalic Eye: Present: PERRL ENT: Present: mucous membranes moist - Routine Neck Exam Present: full ROM - Routine Respiratory Exam Present: crackles Comments: fine crackles bilat lower lobes - Routine Cardiovascular Exam Present: S1, S2, irregular rhythm - Routine Abdominal Exam Present: normoactive bowel sounds - Routine Extremities Exam Present: full ROM, pulses intact, normal capillary refill. Absent: cyanosis, clubbing, edema - Routine Skin Exam Present: intact - Routine Neurological Exam Present: alert, altered mental status, moving all extremities Results 04/24/18 16:04 04/24/18 16:04 Cardiac Enzymes 04/24/18 Range/Units 16:04 CK-MB (CK-2) 4.6 H (0.5-3.6) ng/mL Troponin I 0.02 (0.02-0.05) ng/mL CBC 04/24/18 Range/Units 16:04 WBC 5.0 (4.0-11.0) th/mm3 RBC 3.99 L (4.50-5.90) mil/mm3 Hgb 14.1 (13.0-17.0) gm/dL Hct 40.3 (39.0-51.0) % Plt Count 153 (150-450) th/mm3 Neut # (Auto) 3.5 (1.8-7.7) th/mm3 Lymph # (Auto) 0.9 L (1.0-4.8) th/mm3 [place] # (Auto) 0.4 (0.0-0.9) th/mm3 Eos # (Auto) 0.2 (0.0-0.4) th/mm3 Baso # (Auto) 0.0 (0.0-0.2) th/mm3 Comprehensive Metabolic Panel 04/24/18 Range/Units 16:04 Sodium 142 (136-145) meq/L Potassium 4.0 (3.5-5.1) meq/L Chloride 109 H (98-107) meq/L Carbon Dioxide 27.6 (21.0-32.0) meq/L BUN 25 H (7-18) mg/dL Creatinine 1.25 (0.60-1.30) mg/dL Calcium 8.3 L (8.5-10.1) mg/dL Intake and Output 04/24/18 04/25/18 04/25/18 22:59 06:59 14:59 Other: Date of Last Bowel Movement 04/24/18 Assessment and Plan - Assessment (1) Altered mental status Code(s): R41.82 - Altered mental status, unspecified Status: Acute (2) Atrial fib/flutter, transient Status: Acute - Plan Patient is a poor candidate for full anticoagulation due to overall deconditioning and altered mental status. High risk of serious bleeding. We recommend anticoagulation with full dose ASA 325mg. We recommend rate control and CHF treatment with BB's and BEBA/ARB. We will continue to follow the patient during his hospitalization. The patient was seen and evaluated by Dr. Naidu who participated in care, management and decision making. - Attending Attestation Patient seen and examined. I reviewed and agree with the evaluation and plan as presented. Recommend rate control, tx for CHF and full dose aspirin. Increase activity, PT. (1) Altered mental status Qualifiers: Altered mental status type: unspecified Qualified Code(s): R41.82 - Altered mental status, unspecified
[2018-04-26] MEDS: Heparin - SQ 10,000 UNITS/ML Vial SQ SCH ×2 (06:31→14:00)
[2018-04-26 09:18] LABS: HDL Cholesterol 55.3 mg/dL (40.0-60.0)
[2018-04-26] MEDS: Metoprolol Tartrate 25 MG Tablet PO SCH ×2 (09:51→20:34)
[2018-04-26] MEDS: Lisinopril 5 MG Tablet PO SCH (09:51)
[2018-04-26] MEDS: Aspirin 325 MG Tablet PO SCH (09:51)
--- NOTE | 2018-04-26 13:45 | US ---
EXAM DATE: 04/26/2018 1:40 PM EST AGE/SEX: 77 years / Male INDICATIONS: Hematuria. CLINICAL DATA: This is the patient's initial encounter. Patient reports that signs and symptoms have been present for 1 day and indicates a pain score of 1/10. MEDICAL/SURGICAL HISTORY: . Lymphoma. Tonsillectomy. COMPARISON: No prior exams available for comparison. MEASUREMENTS: Right Kidney:__12.1 x 4.6 x 5.4 cm Left Kidney:__12.6 x 3.6 x 5.2 cm FINDINGS: Right Kidney: Renal parenchyma appears normal in thickness and echogenicity. Well-circumscribed simpl e cyst involving the upper pole measuring 4.4 x 4.5 x 4.1 cm. No evidence of hydronephrosis. Left Kidney: Renal parenchyma appears normal in thickness and echotexture. Single small exophytic sim ple cyst. Bladder: Romero catheter identified within the decompressed bladder. Enlarged prostate gland measuring 6.4 x 5.7 x 7.3 cm. Other: None. CONCLUSION: 1. Significant prostatic hypertrophy. The bladder is decompressed. 2. Bilateral simple appearing renal cysts. No evidence of concerning renal mass or hydronephrosis. Electronically signed by: Sherin Park MD Board Certified Radiologist 04/26/2018 1:44 PM ISABELLA King
--- NOTE | 2018-04-26 14:26 | P.PNIM ---
Subjective Interval history: Follow up hematuria, acute urinary retention, atrial fibrillation with RVR, HFrEF Patient is resting in bed. Patient with golf ball size, hard distention on left lower abdomen. Patient also noted to have hematuria. He states he has not been able to urinate. Patient is wearing a diaper. He is slightly confused. He states he has been having blood in his urine since last week. Spoke with patients son Italo over the phone. Son states patient has a history of lymphoma. He underwent 1 treatment back in but has not followed up since. Son states his Father used to live with him but he ended up selling his house in October of this year and his Father wanted to move back up to the [facility]. Son believed that his Father was renting a place for 400 dollars a month. He states he has attempted to reach out to him but was unable to locate him until he started around to different hospitals and morgues. Physical Exam Vital signs: Last Vital Signs Temp 97.6 F 04/26/18 08:00 Pulse 75 04/26/18 11:24 Resp 18 04/26/18 11:24 BP 118/76 04/26/18 11:24 Pulse Ox 99 04/26/18 11:24 Intake & Output 04/24/18 04/25/18 04/26/18 04/27/18 06:59 06:59 06:59 06:59 Intake Total 960 / 960 591 / 591 Output Total 0 / 0 Balance 960 / 960 591 / 591 Narrative: GENERAL: Tall thin unkempt appearing elderly male patient in [facility]. No acute distress. SKIN: Warm and dry. No rash. HEENT: Normocephalic. Atraumatic. Pupils equal and round. Mucous membranes pink and moist. CARDIOVASCULAR: Irregular rate and rhythm. No murmur appreciated. RESPIRATORY: No accessory muscle use. Clear to auscultation. Breath sounds equal bilaterally. GASTROINTESTINAL: Abdomen soft, non-tender, nondistended. Normoactive bowel sounds x4. Hematuria, distended bladder palpable in left lower quadrant. MUSCULOSKELETAL: No obvious deformities. Extremities without clubbing, cyanosis , or edema. NEUROLOGICAL: Awake and alert. No obvious cranial nerve deficits. Moving all extremities spontaneously. Normal speech. PSYCHIATRIC: limited insight and judgement. Urinary Catheter Management Indwelling Urethral Catheter: Cath placed during this visit: yes Urethral indwelling: Yes Reason for continuing: Acute urinary retention (Gross hematuria) Insertion date: 04/26/18 Insertion time: 13:25 Results Labs CBC & Chem 7: 04/26/18 13:28 04/26/18 13:28 Labs: Microbiology 04/25/18 10:15 Clean Catch Urine Urine Culture - Preliminary gram negative rods Imaging Imaging: Impressions Abdomen/Bladder Ultrasound 04/26/18 00:00 CONCLUSION: 1. Significant prostatic hypertrophy. The bladder is decompressed. 2. Bilateral simple appearing renal cysts. No evidence of concerning renal mass or hydronephrosis. Assessment and Plan (1) Altered mental status: Code(s): R41.82 - Altered mental status, unspecified Status: Acute (2) Atrial fib/flutter, transient: Status: Acute Plan Mr. Guerrero is a 77 year-old male with a possible history of lymphoma who presented to the ER on 04/22/2018 escorted by the police under Batista Act for evaluation after he was found disoriented and wandering around a neighborhood in [place] with urine soaked pants looking for his son. He was evaluated by the psychiatric [employer] for psychiatry and she lifted the Batista Act following her evaluation. The patient is being kept here pending placement after the patient's family refused to pick him up from the hospital [facility]. He is unable to provide with any specific medical information. He does acknowledge being diagnosed with lymphoma but he is tangential when discussing this and is unable to tell me any of the treatment he had for it or the names of any doctors he saw for it. He denies taking any medications. He can seem very oriented at times but fails to be able to provide any specific details about himself and he is a very difficult and poor historian. Acute urinary retention -bladder scan shows > 600 ml -blair cath inserted with 800 ml of output -US kidney/renal/bladder completed and shows a decompressed bladder, no hydronephrosis, no renal mass, significant prostatic hypertrophy -added Flomax -Urology consult Gross Hematuria -Urology consulted -hold Heparin and ASA pending Urology evaluation -H/H stable, monitor Q12 hrs x 2 -gentle hydration @ 50 ml/hr 500 ml total 2/2 low EF Prostatic hypertrophy -Flomax -Urology consult Atrial Fibrillation with RVR - now rate controlled -monitor on telemetry -[id number] score of 2 due to age although unclear PMH, patient likely poor candidate for anticoagulation due to concern for noncompliance -started on aspirin 325mg and metoprolol 25mg bid. ASA currently on hold 2/2 hematuria. -echocardiogram shows severely reduced systolic left ventricular function with EF of 25-30% -consult cardiology Systolic heart failure, chronic -see echo findings as noted above -BB, BEBA-I, hold ASA for now d/t hematuria -daily weights, strict I&O, monitor for volume overload Unsafe discharge -Mandatory outpatient referral to assist with discharge planning/possible custodial placement; DCF involved -Hopefully family members will show and can assist with medical history - the patient denies taking any medications at home -Regular diet -Head CT with atrophy and white matter disease -Toxicology negative including alcohol -UA not consistent with UTI -Chest x-ray without acute cardiopulmonary process noted -Blood work consistent with mild dehydration -patient able to take p.o. fluids; no significant findings -continue to monitor MDM: tiana Puckett can be contacted at [phone] Code: Full GI ppx: PPI DVT ppx: hold Heparin d/t hematuria, SCD's Code Status: Full Discussed Condition With: RN, patient, tiana Puckett, [employer] Discharge Planning: Patient may require mandarin tutor placement Progress Note: Quality VTE Deep Vein Thrombosis/Pulmonary Embolism Present on Admission: No _ (1) Altered mental status Qualifiers: Altered mental status type: unspecified Coma depth: Coma timing: Qualified Code(s): R41.82 - Altered mental status, unspecified
[2018-04-26 14:55] LABS: Baso % (Auto) 0.1 % (0.0-2.0); Eos % (Auto) 0.2 % (0.0-4.0); Hematocrit 40.9 % (39.0-51.0); Hemoglobin 13.9 gm/dL (13.0-17.0); Lymph # (Auto) 0.5 th/mm3 (1.0-4.8); Lymph % (Auto) 6.1 % (9.0-44.0); Mean Corpuscular HGB Conc 33.9 % (32.0-36.0); Mean Corpuscular Hemoglobin 34.9 pg (27.0-34.0); Mean Corpuscular Volume 102.9 fL (80.0-100.0); Mean Platelet Volume 8.8 fL (7.0-11.0); Mono # (Auto) 0.6 th/mm3 (0.0-0.9); Mono % (Auto) 7.5 % (0.0-8.0); Neut # (Auto) 7.1 th/mm3 (1.8-7.7); Neut % (Auto) 86.1 % (16.0-70.0); Platelet Count 159 th/mm3 (150-450); Red Blood Count 3.97 mil/mm3 (4.50-5.90); Red Cell Distribution Width 14.3 % (11.6-17.2); White Blood Count 8.3 th/mm3 (4.0-11.0)
[2018-04-26 15:11] LABS: Calcium 8.2 mg/dL (8.5-10.1); Carbon Dioxide 28.4 meq/L (21.0-32.0); Potassium 4.3 meq/L (3.5-5.1)
[2018-04-26 15:34] LABS: Bacteria,Urine Rare /hpf; Bilirubin,Urine Negative (Negative); Clarity,Urine Hazy (Clear); Color,Urine Yellow (Yellw/Straw); Glucose,Urine (UA) Negative (Negative); Leukocyte Esterase,Urine Negative (Negative); Nitrite,Urine Negative (Negative)
[2018-04-26] MEDS ORDERED: Sodium Chlor 0.9% Inj 500 ML IV.CONT SCH (15:46)
--- NOTE | 2018-04-26 16:00 | MB ---
cc: Jose Eppsn Preet DO DATE: 04/26/2018 HISTORY OF PRESENT ILLNESS: This is a 77-year-old male who was brought to the emergency room by his son due to altered mental status. He was recently Batista Acted. The patient states that once he got to the emergency room, he noticed some blood in his urine. A Romero catheter was placed for 800 mL. He has light pink-tinged urine draining from the Romero catheter at the present time. He denies any history of prostate cancer/bladder cancer or prior radiation therapy. He does have a history of lymphoma, which is in remission. He states that he gets up 1-2 times at night to empty his bladder. Abdominal ultrasound in the emergency room showed significant prostatic hypertrophy with decompression of the bladder. No concerning mass or hydronephrosis is noted. ALLERGIES: HE HAS NO KNOWN DRUG ALLERGIES. PAST SURGICAL HISTORY: Noted for tonsillectomy. FAMILY HISTORY: No significant family history is noted. SOCIAL HISTORY: Currently smokes daily. Drinks 2-3 times a week. No history of abuse. Denies any drug usage. REVIEW OF SYSTEMS: Denies chest pain or shortness of breath. Denies abdominal pain. Notes gross hematuria, nocturia 1-2 times. Denies urinary tract infections or stones. No history of prostate cancer is noted. The remaining review of systems were reviewed and were negative. PHYSICAL EXAMINATION: VITAL SIGNS: Today, temperature 97.6, heart rate 75, respiratory 18, 118/76. GENERAL: He is a well-developed, well-nourished, 77-year-old male in no acute distress. HEENT: Normocephalic, atraumatic. Extraocular movements intact. Pupils regular, round and reactive to light. NECK: Supple. HEART: Regular rate and rhythm. LUNGS: Clear. ABDOMEN: Soft, nontender, nondistended. GENITOURINARY: Romero catheter is in position. Normal phallus. Testes are descended. Prostate is 80 grams on exam, smooth with no nodularity. EXTREMITIES: Show no cyanosis, clubbing or edema. NEUROLOGIC: Cranial nerves 2-12 are intact. LABORATORY DATA: White count 8.3, hemoglobin 13.9, hematocrit 40.9, platelet count 159. Sodium 142, potassium 4.3, chloride 107, CO2 of 28.4, BUN 45, creatinine 3.21, up from 1.25. Initial urinalysis on 04/21/2018 shows no blood, less than 1 red cell. Urine culture shows gram-negative rods. ASSESSMENT AND PLAN: This is a 77-year-old male admitted with altered mental status with onset of gross hematuria with negative UA on admission. Hematuria could be due to Romero catheter or to bladder decompression after the Romero catheter was placed. The catheter was advanced at the bedside as I palpated it near the prostatic urethra. Await urine culture results and treat urinary tract infection as appropriate. Continue Flomax 0.4 mg p.o. at bedtime. Monitor urine output for now. We will give a void trial in the few days. May need cystoscopy as an outpatient. Thank you for the consult and allowing me to participate in the care of this patient. DO Nadeem Camilo , 03:35 PM , 03:42 PM
--- NOTE | 2018-04-26 16:33 | P.PNCA ---
Subjective Interval history: Patient denies any CP, pressure, palpitations, dizziness or edema. Patient does complain of mild SOB but states it is not new. Medications and Allergies Allergies Allergy/AdvReac Type Severity Reaction Status Date / Time No Known Allergies Allergy Verified 04/21/18 14:50 Home Medications Medication Instructions Recorded Confirmed Type Unable to Obtain Home Meds 04/21/18 04/21/18 History Active Medications: Active Medications Sodium Chloride (Ns Inj) 500 mls @ 50 mls/hr IV.CONT .Q10H [facility] Stop: 04/27/18 01:45 Lisinopril (Prinivil) 5 mg PO DAILY [facility] Last Admin: 04/26/18 09:51 Dose: 5 mg Metoprolol Tartrate (Lopressor) 25 mg PO BID [facility] Last Admin: 04/26/18 09:51 Dose: 25 mg Ondansetron HCl (Zofran Inj) 4 mg IV.PUSH Q6H PRN PRN Reason: NAUSEA Last Admin: 04/26/18 12:16 Dose: 4 mg Pantoprazole Sodium (Protonix) 40 mg PO DAILY [facility] Tamsulosin HCl (Flomax) 0.4 mg PO DAILY [facility] Physical Exam Vital signs: Vital Signs 04/25/18 19:35 04/25/18 23:57 04/26/18 04:00 Temperature 98.1 F 97.5 F L 97.4 F L Pulse Rate 102 H 68 80 Respiratory Rate 18 18 18 Blood Pressure 132/82 138/87 135/84 Pulse Oximetry 96 98 99 04/26/18 07:15 04/26/18 08:00 04/26/18 11:24 Temperature 97.6 F Pulse Rate 90 105 H 75 Respiratory Rate 18 18 Blood Pressure 128/95 H 118/76 Pulse Oximetry 97 99 04/26/18 11:45 04/26/18 16:00 Temperature Pulse Rate 68 70 Respiratory Rate 16 Blood Pressure 103/60 Pulse Oximetry 100 Intake & Output 04/25/18 04/26/18 04/26/18 18:59 06:59 18:59 Intake Total 591 / 591 Output Total 0 / 0 800 / 800 Balance 591 / 591 -800 / -800 Intake: Oral 591 / 591 Output: Urine 0 / 0 Urine Amount (Catheter) 800 / 800 Indwelling Urethral Catheter 800 / 800 Other: Date of Last Bowel Movement 04/24/18 - Constitutional no acute distress - Routine HEENT Exam Head: Present: normocephalic Eye: Present: PERRL ENT: Present: mucous membranes moist - Routine Neck Exam Present: full ROM - Routine Respiratory Exam Present: CTA bilaterally - Routine Cardiovascular Exam Present: S1, S2, irregular rhythm. Absent: murmur, gallop, rubs - Routine Abdominal Exam Present: normoactive bowel sounds - Routine Extremities Exam Present: full ROM, pulses intact, normal capillary refill. Absent: cyanosis, clubbing, edema - Routine Skin Exam Present: intact - Routine Neurological Exam Present: oriented X3 - Detailed Neurological Exam: Coma Scale Eye Opening: Spontaneous Verbal Response: Oriented Motor Response: Obey commands Kiersten Coma Scale Total: 15 - Routine Psychiatric Exam Present: normal affect - Urinary Catheter Management Indwelling Urethral Catheter Cath placed during this visit: yes Reason for continuing: Acute urinary retention Insertion date: 04/26/18 Insertion time: 13:25 Results 04/26/18 13:28 04/26/18 13:28 Cardiac Enzymes 04/24/18 Range/Units 16:04 CK-MB (CK-2) 4.6 H (0.5-3.6) ng/mL Troponin I 0.02 (0.02-0.05) ng/mL Lipids 04/26/18 Range/Units 07:59 Triglycerides 103 (42-150) mg/dL Cholesterol 166 (120-200) mg/dL HDL Cholesterol 55.3 (40.0-60.0) mg/dL Cholesterol/HDL Ratio 3.00 Ratio CBC 04/24/18 04/26/18 Range/Units 16:04 13:28 WBC 5.0 8.3 (4.0-11.0) th/mm3 RBC 3.99 L 3.97 L (4.50-5.90) mil/mm3 Hgb 14.1 13.9 (13.0-17.0) gm/dL Hct 40.3 40.9 (39.0-51.0) % Plt Count 153 159 (150-450) th/mm3 Neut # (Auto) 3.5 7.1 (1.8-7.7) th/mm3 Lymph # (Auto) 0.9 L 0.5 L (1.0-4.8) th/mm3 [place] # (Auto) 0.4 0.6 (0.0-0.9) th/mm3 Eos # (Auto) 0.2 0.0 (0.0-0.4) th/mm3 Baso # (Auto) 0.0 0.0 (0.0-0.2) th/mm3 Comprehensive Metabolic Panel 04/24/18 04/26/18 Range/Units 16:04 13:28 Sodium 142 142 (136-145) meq/L Potassium 4.0 4.3 (3.5-5.1) meq/L Chloride 109 H 107 (98-107) meq/L Carbon Dioxide 27.6 28.4 (21.0-32.0) meq/L BUN 25 H 45 H (7-18) mg/dL Creatinine 1.25 3.21 H (0.60-1.30) mg/dL Calcium 8.3 L 8.2 L (8.5-10.1) mg/dL Intake and Output 04/26/18 04/26/18 04/26/18 06:59 14:59 22:59 Intake Total 591 / 591 Output Total 0 / 0 800 / 800 Balance 591 / 591 -800 / -800 Intake: Oral 591 / 591 Output: Urine 0 / 0 Urine Amount (Catheter) 800 / 800 Indwelling Urethral Catheter 800 / 800 - Imaging and Cardiology Imaging: Impressions Abdomen/Bladder Ultrasound 04/26/18 00:00 CONCLUSION: 1. Significant prostatic hypertrophy. The bladder is decompressed. 2. Bilateral simple appearing renal cysts. No evidence of concerning renal mass or hydronephrosis. Assessment and Plan - Assessment (1) Altered mental status Code(s): R41.82 - Altered mental status, unspecified Status: Acute (2) Atrial fib/flutter, transient Status: Acute - Plan Patients neuro status has improved, neurology evaluation in progress. Patient currently in atrial flutter with controlled rate. We do not recommend full anticoagulation due to patient's altered mental status and current hematuria, recommend urology evaluation. We will continue with current treatment plan for rate control and CHF with BB's and BEBA/ARBs. We will continue to monitor patient during his hospitalization. The patient was seen and evaluated by Dr. Naidu who participated in care, management and decision making. - Attending Attestation Patient seen and examined. I reviewed and agree with the evaluation and plan as presented. Continue tx for a flutter and CHF. Risk of full anticoagulation higher than its benefit at this time. (1) Altered mental status Qualifiers: Altered mental status type: unspecified Qualified Code(s): R41.82 - Altered mental status, unspecified
[2018-04-27 08:26] LABS: Baso % (Auto) 0.5 % (0.0-2.0); Eos # (Auto) 0.1 th/mm3 (0.0-0.4); Hemoglobin 12.3 gm/dL (13.0-17.0); Lymph # (Auto) 0.8 th/mm3 (1.0-4.8); Lymph % (Auto) 16.3 % (9.0-44.0); Mean Corpuscular HGB Conc 35.2 % (32.0-36.0); Mean Corpuscular Hemoglobin 35.5 pg (27.0-34.0); Mean Corpuscular Volume 100.9 fL (80.0-100.0); Mean Platelet Volume 8.3 fL (7.0-11.0); Mono # (Auto) 0.5 th/mm3 (0.0-0.9); Mono % (Auto) 9.7 % (0.0-8.0); Neut # (Auto) 3.6 th/mm3 (1.8-7.7); Neut % (Auto) 71.5 % (16.0-70.0); Platelet Count 112 th/mm3 (150-450); Red Blood Count 3.46 mil/mm3 (4.50-5.90); Red Cell Distribution Width 13.8 % (11.6-17.2); White Blood Count 5.1 th/mm3 (4.0-11.0)
[2018-04-27] MEDS: Lisinopril 5 MG Tablet PO SCH (08:34)
[2018-04-27] MEDS: Metoprolol Tartrate 25 MG Tablet PO SCH ×2 (08:34→22:08)
[2018-04-27 08:59] LABS: Calcium 7.9 mg/dL (8.5-10.1); Carbon Dioxide 27.1 meq/L (21.0-32.0); Potassium 4.3 meq/L (3.5-5.1)
--- NOTE | 2018-04-27 13:22 | P.PNURO ---
Subjective Patient symptoms today: Pt seen and examined. Feels well. No complaints. Objective Vital Signs: Vital Signs 04/26/18 16:00 04/26/18 19:28 04/26/18 20:00 Temperature 98.0 F Pulse Rate 70 71 91 H Respiratory Rate 16 16 Blood Pressure 103/60 112/63 Pulse Oximetry 100 99 04/26/18 22:42 04/27/18 00:00 04/27/18 04:00 Temperature 98.6 F 98.3 F Pulse Rate 72 73 67 Respiratory Rate 18 16 Blood Pressure 91/50 L 97/55 L Pulse Oximetry 98 98 04/27/18 08:00 04/27/18 08:34 04/27/18 11:00 Temperature 98 F Pulse Rate 70 69 74 Respiratory Rate 18 20 Blood Pressure 113/63 111/58 L Pulse Oximetry 98 95 Intake & Output 04/26/18 04/27/18 04/27/18 18:59 06:59 18:59 Intake Total 500 / 500 100 / 100 Output Total 1300 / 1300 900 / 900 Balance -1300 / -1300 -400 / -400 100 / 100 Weight 64.3 kg Intake: IV 500 / 500 100 / 100 NS Inj 500 ML @ 50 mls/hr IV. 500 / 500 CONT .Q10H [facility] Rx#:[id number] Rocephin Inj 1,000 MG In NS Inj 100 / 100 100 ML @ 200 mls/hr IV.SIG Q24H [facility] Rx#:[id number] Output: Urine Amount (Catheter) 1300 / 1300 900 / 900 Indwelling Urethral Catheter 1300 / 1300 900 / 900 Other: Date of Last Bowel Movement 04/24/18 Result Diagrams: 04/27/18 07:53 04/27/18 07:53 Imaging: Impressions Abdomen/Bladder Ultrasound 04/26/18 00:00 CONCLUSION: 1. Significant prostatic hypertrophy. The bladder is decompressed. 2. Bilateral simple appearing renal cysts. No evidence of concerning renal mass or hydronephrosis. Medications and IVs: Active Medications Generic Name Dose Route Start Last Admin Trade Name Freq PRN Reason Stop Dose Admin Aspirin 325 mg 04/28/18 09:00 Aspirin PO DAILY [facility] Ceftriaxone Sodium 1,000 mg/ 100 mls @ 200 mls/hr 04/27/18 08:00 04/27/18 09: 04 Sodium Chloride IV.SIG Infused Q24H [facility] Infusion Lisinopril 5 mg 04/26/18 09:00 04/27/18 08:34 Prinivil PO 5 mg DAILY [facility] Administration Metoprolol Tartrate 25 mg 04/25/18 09:00 04/27/18 08:34 Lopressor PO 25 mg BID [facility] Administration Ondansetron HCl 4 mg 04/26/18 12:00 04/26/18 12:16 Zofran Inj IV.PUSH 4 mg Q6H PRN Administration NAUSEA Pantoprazole Sodium 40 mg 04/26/18 15:15 04/27/18 08:34 Protonix PO 40 mg DAILY [facility] Administration Tamsulosin HCl 0.4 mg 04/26/18 21:00 04/27/18 08:34 Flomax PO 0.4 mg DAILY [facility] Administration Objective Remarks: Abd:soft,nt,nd Blair: urine clear Assessment and Plan - Plan 77 y.o male with ARF with BPH with obstruction and hematuria after blair insertion Maintain blair as ARF is improving. Creatinine down to 1.5 from 3 Continue Flomax Void trial in the next few days
--- NOTE | 2018-04-27 13:50 | P.PNCA ---
Subjective Interval history: Patient denies any CP, pressure, palpitations, dizziness, edema or SOB. Patient states he feels fine. Medications and Allergies Allergies Allergy/AdvReac Type Severity Reaction Status Date / Time No Known Allergies Allergy Verified 04/21/18 14:50 Home Medications Medication Instructions Recorded Confirmed Type Unable to Obtain Home Meds 04/21/18 04/21/18 History Active Medications: Active Medications Aspirin (Aspirin) 325 mg PO DAILY [facility] Ceftriaxone Sodium 1,000 mg/ (Sodium Chloride) 100 mls @ 200 mls/hr IV.SIG Q24H [facility] Last Infusion: 04/27/18 09:04 Dose: Infused Lisinopril (Prinivil) 5 mg PO DAILY [facility] Last Admin: 04/27/18 08:34 Dose: 5 mg Metoprolol Tartrate (Lopressor) 25 mg PO BID [facility] Last Admin: 04/27/18 08:34 Dose: 25 mg Ondansetron HCl (Zofran Inj) 4 mg IV.PUSH Q6H PRN PRN Reason: NAUSEA Last Admin: 04/26/18 12:16 Dose: 4 mg Pantoprazole Sodium (Protonix) 40 mg PO DAILY [facility] Last Admin: 04/27/18 08:34 Dose: 40 mg Tamsulosin HCl (Flomax) 0.4 mg PO DAILY [facility] Last Admin: 04/27/18 08:34 Dose: 0.4 mg Physical Exam Vital signs: Vital Signs 04/26/18 16:00 04/26/18 19:28 04/26/18 20:00 Temperature 98.0 F Pulse Rate 70 71 91 H Respiratory Rate 16 16 Blood Pressure 103/60 112/63 Pulse Oximetry 100 99 04/26/18 22:42 04/27/18 00:00 04/27/18 04:00 Temperature 98.6 F 98.3 F Pulse Rate 72 73 67 Respiratory Rate 18 16 Blood Pressure 91/50 L 97/55 L Pulse Oximetry 98 98 04/27/18 08:00 04/27/18 08:34 04/27/18 11:00 Temperature 98 F Pulse Rate 70 69 74 Respiratory Rate 18 20 Blood Pressure 113/63 111/58 L Pulse Oximetry 98 95 Intake & Output 04/26/18 04/27/18 04/27/18 18:59 06:59 18:59 Intake Total 500 / 500 100 / 100 Output Total 1300 / 1300 900 / 900 Balance -1300 / -1300 -400 / -400 100 / 100 Weight 64.3 kg Intake: IV 500 / 500 100 / 100 NS Inj 500 ML @ 50 mls/hr IV. 500 / 500 CONT .Q10H [facility] Rx#:[id number] Rocephin Inj 1,000 MG In NS Inj 100 / 100 100 ML @ 200 mls/hr IV.SIG Q24H [facility] Rx#:[id number] Output: Urine Amount (Catheter) 1300 / 1300 900 / 900 Indwelling Urethral Catheter 1300 / 1300 900 / 900 Other: Date of Last Bowel Movement 04/24/18 - Constitutional no acute distress - Routine HEENT Exam Head: Present: normocephalic Eye: Present: PERRL ENT: Present: mucous membranes moist - Routine Neck Exam Present: full ROM - Routine Respiratory Exam Present: CTA bilaterally - Routine Cardiovascular Exam Present: S1, S2, irregular rhythm. Absent: murmur, gallop, rubs - Routine Abdominal Exam Present: normoactive bowel sounds - Routine Extremities Exam Present: full ROM, pulses intact, normal capillary refill. Absent: cyanosis, clubbing, edema - Routine Skin Exam Present: intact - Routine Neurological Exam Present: oriented X3 - Detailed Neurological Exam: Coma Scale Eye Opening: Spontaneous Verbal Response: Oriented Motor Response: Obey commands Kiersten Coma Scale Total: 15 - Routine Psychiatric Exam Present: normal affect - Urinary Catheter Management Indwelling Urethral Catheter Cath placed during this visit: yes Urethral indwelling: Yes Reason for continuing: Acute urinary retention Insertion date: 04/26/18 Insertion time: 13:25 Results 04/27/18 07:53 04/27/18 07:53 Lipids 04/26/18 Range/Units 07:59 Triglycerides 103 (42-150) mg/dL Cholesterol 166 (120-200) mg/dL HDL Cholesterol 55.3 (40.0-60.0) mg/dL Cholesterol/HDL Ratio 3.00 Ratio CBC 04/26/18 04/27/18 Range/Units 13:28 07:53 WBC 8.3 5.1 (4.0-11.0) th/mm3 RBC 3.97 L 3.46 L (4.50-5.90) mil/mm3 Hgb 13.9 12.3 L (13.0-17.0) gm/dL Hct 40.9 35.0 L (39.0-51.0) % Plt Count 159 112 L (150-450) th/mm3 Neut # (Auto) 7.1 3.6 (1.8-7.7) th/mm3 Lymph # (Auto) 0.5 L 0.8 L (1.0-4.8) th/mm3 [place] # (Auto) 0.6 0.5 (0.0-0.9) th/mm3 Eos # (Auto) 0.0 0.1 (0.0-0.4) th/mm3 Baso # (Auto) 0.0 0.0 (0.0-0.2) th/mm3 Comprehensive Metabolic Panel 04/26/18 04/27/18 Range/Units 13:28 07:53 Sodium 142 141 (136-145) meq/L Potassium 4.3 4.3 (3.5-5.1) meq/L Chloride 107 110 H (98-107) meq/L Carbon Dioxide 28.4 27.1 (21.0-32.0) meq/L BUN 45 H 31 H (7-18) mg/dL Creatinine 3.21 H 1.56 H (0.60-1.30) mg/dL Calcium 8.2 L 7.9 L (8.5-10.1) mg/dL Intake and Output 04/26/18 04/27/18 04/27/18 22:59 06:59 14:59 Intake Total 500 / 500 100 / 100 Output Total 500 / 500 900 / 900 Balance -500 / -500 -400 / -400 100 / 100 Intake: IV 500 / 500 100 / 100 NS Inj 500 ML @ 50 mls/hr IV. 500 / 500 CONT .Q10H [facility] Rx#:[id number] Rocephin Inj 1,000 MG In NS Inj 100 / 100 100 ML @ 200 mls/hr IV.SIG Q24H [facility] Rx#:[id number] Output: Urine Amount (Catheter) 500 / 500 900 / 900 Indwelling Urethral Catheter 500 / 500 900 / 900 Other: Date of Last Bowel Movement 04/24/18 Weight 64.3 kg - Imaging and Cardiology Imaging: Impressions Abdomen/Bladder Ultrasound 04/26/18 00:00 CONCLUSION: 1. Significant prostatic hypertrophy. The bladder is decompressed. 2. Bilateral simple appearing renal cysts. No evidence of concerning renal mass or hydronephrosis. Assessment and Plan - Assessment (1) Altered mental status Code(s): R41.82 - Altered mental status, unspecified Status: Acute (2) Atrial fib/flutter, transient Status: Acute - Plan No new cardiac issues at this time. Patient continues to be in atrial flutter at a controlled rate. Unable to fully anticoagulate due to hematuria, urology evaluation. Neurology evaluation in progress due to patient's mental status. We will continue with current treatment for CHF with BB's and BEBA/ARBs. We will continue to monitor patient during hospitalization. The patient was seen and evaluated by Dr. Naidu who participated in care, management and decision making. - Attending Attestation Patient seen and examined. I reviewed and agree with the evaluation and plan as presented. Continue rate control and tx for CHF. Still confused; neurology evaluation. (1) Altered mental status Qualifiers: Altered mental status type: unspecified Qualified Code(s): R41.82 - Altered mental status, unspecified
--- NOTE | 2018-04-27 14:40 | P.PNIM ---
Subjective Interval history: Follow up hematuria, acute urinary retention, placement Patient is talking in a loud voice and describing what led him to get upset about his son yesterday evening. Patient then talks about different topics. It is unclear how well he understands his medical conditions, treatments etc. He denies any abdominal pain, nausea or vomiting. Blair catheter with good urine output. Hematuria appears to be improving. Patient denies cough, fever or chills. Physical Exam Vital signs: Last Vital Signs Temp 98 F 04/27/18 11:00 Pulse 78 04/27/18 12:00 Resp 20 04/27/18 11:00 BP 111/58 L 04/27/18 11:00 Pulse Ox 95 04/27/18 11:00 Intake & Output 04/25/18 04/26/18 04/27/18 04/28/18 06:59 06:59 06:59 06:59 Intake Total 591 / 591 500 / 500 100 / 100 Output Total 0 / 0 2200 / 2200 Balance 591 / 591 -1700 / -1700 100 / 100 Weight 64.3 kg Narrative: GENERAL: Tall thin unkempt appearing elderly male patient in [facility]. SKIN: Warm and dry. No rash. HEENT: Normocephalic. Atraumatic. Pupils equal and round. Mucous membranes pink and moist. CARDIOVASCULAR: Irregular rate and rhythm. No murmur appreciated. RESPIRATORY: No accessory muscle use. Clear to auscultation. Breath sounds equal bilaterally. GASTROINTESTINAL: Abdomen soft, non-tender, nondistended. Normoactive bowel sounds x4. : blair catheter in place with mild hematuria MUSCULOSKELETAL: No obvious deformities. Extremities without clubbing, cyanosis , or edema. NEUROLOGICAL: Awake and alert. No obvious cranial nerve deficits. Moving all extremities spontaneously. PSYCHIATRIC: limited insight and judgement. Urinary Catheter Management Indwelling Urethral Catheter: Cath placed during this visit: yes Urethral indwelling: Yes Reason for continuing: Acute urinary retention Insertion date: 04/26/18 Insertion time: 13:25 Results Labs CBC & Chem 7: 04/27/18 07:53 04/27/18 07:53 Labs: Microbiology 04/25/18 10:15 Clean Catch Urine Urine Culture - Final Providencia rettgeri Proteus mirabilis Assessment and Plan (1) Altered mental status: Code(s): R41.82 - Altered mental status, unspecified Status: Acute (2) Atrial fib/flutter, transient: Status: Acute Plan Mr. Guerrero is a 77 year-old male with a possible history of lymphoma who presented to the ER on 04/22/2018 escorted by the police under [place] Act for evaluation after he was found disoriented and wandering around a neighborhood in [place] with urine soaked pants looking for his son. He was evaluated by the psychiatric DIE TROUBLE SHOOTER for psychiatry and she lifted the Batista Act following her evaluation. The patient is being kept here pending placement after the patient's family refused to pick him up from the hospital [facility]. He is unable to provide with any specific medical information. He does acknowledge being diagnosed with lymphoma but he is tangential when discussing this and is unable to tell me any of the treatment he had for it or the names of any doctors he saw for it. He denies taking any medications. He can seem very oriented at times but fails to be able to provide any specific details about himself and he is a very difficult and poor historian. Acute urinary retention -bladder scan shows > 600 ml -blair cath inserted with 800 ml of output -US kidney/renal/bladder completed and shows a decompressed bladder, no hydronephrosis, no renal mass, significant prostatic hypertrophy -continue Flomax -Urology consulted and following -voiding trial in next day or two Gross Hematuria -Urology consulted and following -H/H stable -repeat CBC in am -gentle hydration @ 50 ml/hr 500 ml total 2/2 low EF Acute kidney injury -improved s/p hydration w/ IV fluids -Cr 3.21 --> 1.56 -give additional 500 ml over 10 hrs -repeat BMP in am Prostatic hypertrophy -Flomax, Blair cath -Urology consult Atrial Fibrillation with RVR - now rate controlled -monitor on telemetry -[id number] score of 2 due to age although unclear PMH, patient likely poor candidate for anticoagulation due to concern for noncompliance -started on aspirin 325mg and metoprolol 25mg bid. ASA currently on hold 2/2 hematuria. -echocardiogram shows severely reduced systolic left ventricular function with EF of 25-30% -cardiology consulted and following Systolic heart failure, chronic -see echo findings as noted above -BB, BEBA-I, hold ASA for now d/t hematuria -daily weights, strict I&O, monitor for volume overload Unsafe discharge -Mandatory outpatient referral to assist with discharge planning/possible correction placement -Regular diet -Head CT with atrophy and white matter disease -Toxicology negative including alcohol -UA not consistent with UTI -Chest x-ray without acute cardiopulmonary process noted -Blood work consistent with mild dehydration -patient able to take p.o. fluids; no significant findings -Neuopsych consultation ordered to evaluate for decision making capacity MDM: tiana Puckett can be contacted at [phone] Code: Full GI ppx: PPI DVT ppx: hold Heparin d/t hematuria, SCD's Discharge Planning: Patient may require skilled nursing placement Progress Note: Quality VTE Deep Vein Thrombosis/Pulmonary Embolism Present on Admission: No _ (1) Altered mental status Qualifiers: Altered mental status type: unspecified Coma depth: Coma timing: Qualified Code(s): R41.82 - Altered mental status, unspecified
[2018-04-27] MEDS ORDERED: Sodium Chlor 0.9% Inj 500 ML IV.CONT SCH (15:00)
[2018-04-28 06:07] LABS: Baso % (Auto) 0.7 % (0.0-2.0); Eos # (Auto) 0.1 th/mm3 (0.0-0.4); Eos % (Auto) 2.9 % (0.0-4.0); Hematocrit 35.4 % (39.0-51.0); Hemoglobin 12.4 gm/dL (13.0-17.0); Lymph # (Auto) 0.8 th/mm3 (1.0-4.8); Lymph % (Auto) 16.5 % (9.0-44.0); Mean Corpuscular Hemoglobin 34.8 pg (27.0-34.0); Mean Corpuscular Volume 99.5 fL (80.0-100.0); Mean Platelet Volume 8.8 fL (7.0-11.0); Mono # (Auto) 0.5 th/mm3 (0.0-0.9); Mono % (Auto) 9.8 % (0.0-8.0); Neut # (Auto) 3.4 th/mm3 (1.8-7.7); Neut % (Auto) 70.1 % (16.0-70.0); Platelet Count 124 th/mm3 (150-450); Red Blood Count 3.56 mil/mm3 (4.50-5.90); White Blood Count 4.8 th/mm3 (4.0-11.0)
[2018-04-28 06:28] LABS: Calcium 8.2 mg/dL (8.5-10.1); Carbon Dioxide 26.8 meq/L (21.0-32.0); Potassium 4.3 meq/L (3.5-5.1)
[2018-04-28] MEDS: Metoprolol Tartrate 25 MG Tablet PO SCH ×2 (08:16→20:32)
[2018-04-28] MEDS: Lisinopril 5 MG Tablet PO SCH (08:17)
[2018-04-28] MEDS ORDERED: Aspirin 325 MG Tablet PO SCH (09:00)
--- NOTE | 2018-04-28 10:22 | P.PNIM ---
Subjective Interval history: Follow up a-fib/flutter, hematuria, BPH, urinary retention Patient seen and examined while resting in bed. He denies suprapubic pain, abdominal pain, nausea or vomiting. He has a good appetite. He states he never gets enough food. Urine clearing up. Physical Exam Vital signs: Last Vital Signs Temp 97.3 F L 04/28/18 07:41 Pulse 68 04/28/18 07:41 Resp 16 04/28/18 07:41 BP 124/73 04/28/18 07:41 Pulse Ox 98 04/28/18 07:41 Intake & Output 04/26/18 04/27/18 04/28/18 04/29/18 06:59 06:59 06:59 06:59 Intake Total 591 / 591 500 / 500 800 / 800 100 / 100 Output Total 0 / 0 2200 / 2200 900 / 900 Balance 591 / 591 -1700 / -1700 -100 / -100 100 / 100 Weight 64.3 kg Narrative: GENERAL: Tall thin unkempt appearing elderly male patient in [facility]. SKIN: Warm and dry. No rash. HEENT: Normocephalic. Atraumatic. Pupils equal and round. Mucous membranes pink and moist. CARDIOVASCULAR: Irregular rate and rhythm. No murmur appreciated. RESPIRATORY: No accessory muscle use. Clear to auscultation. Breath sounds equal bilaterally. GASTROINTESTINAL: Abdomen soft, non-tender, nondistended. Normoactive bowel sounds x4. : blair catheter in place with mild hematuria MUSCULOSKELETAL: No obvious deformities. Extremities without clubbing, cyanosis , or edema. NEUROLOGICAL: Awake and alert. No obvious cranial nerve deficits. Moving all extremities spontaneously. PSYCHIATRIC: limited insight and judgement. Urinary Catheter Management Indwelling Urethral Catheter: Cath placed during this visit: yes Urethral indwelling: Yes Reason for continuing: Acute urinary retention Insertion date: 04/26/18 Insertion time: 13:25 Results Labs CBC & Chem 7: 04/28/18 04:40 04/28/18 04:40 Labs: Microbiology 04/25/18 10:15 Clean Catch Urine Urine Culture - Final Providencia rettgeri Proteus mirabilis Assessment and Plan (1) Altered mental status: Code(s): R41.82 - Altered mental status, unspecified Status: Acute (2) Atrial fib/flutter, transient: Status: Acute Plan Mr. Guerrero is a 77 year-old male with a possible history of lymphoma who presented to the ER on 04/22/2018 escorted by the police under [place] Act for evaluation after he was found disoriented and wandering around a neighborhood in [place] with urine soaked pants looking for his son. He was evaluated by the psychiatric PRESSING MACHINE TENDER for psychiatry and she lifted the Batista Act following her evaluation. The patient is being kept here pending placement after the patient's family refused to pick [facility]. He is unable to provide with any specific medical information. He does acknowledge being diagnosed with lymphoma but he is tangential when discussing this and is unable to tell me any of the treatment he had for it or the names of any doctors he saw for it. He denies taking any medications. He can seem very oriented at times but fails to be able to provide any specific details about himself and he is a very difficult and poor historian. Acute urinary retention - stable -bladder scan shows > 600 ml -blair cath inserted with 800 ml of output -US kidney/renal/bladder completed and shows a decompressed bladder, no hydronephrosis, no renal mass, significant prostatic hypertrophy -continue Flomax -Urology consulted and following -voiding trial in next day Gross Hematuria - improved -Urology consulted and following -H/H stable -repeat CBC in am -gentle hydration @ 50 ml/hr 500 ml total 2/2 low EF Acute kidney injury -improved s/p hydration w/ IV fluids -Cr 3.21 --> 1.56 --> 1.15 -monitor Urinary tract infection -urine cx providencia rettgeri and proteus mirabilis both sensitive to Ceftriaxone -continue Ceftriaxone IV Prostatic hypertrophy -Flomax, Blair cath -Urology consulted and following Atrial Fibrillation with RVR - now rate controlled -monitor on telemetry -[id number] score of 2 due to age although unclear PMH, patient likely poor candidate for anticoagulation due to concern for noncompliance -started on aspirin 325mg and metoprolol 25mg bid -echocardiogram shows severely reduced systolic left ventricular function with EF of 25-30% -cardiology consulted and following Systolic heart failure, chronic - no acute exacerbation at present time -see echo findings as noted above -cardiology consulted and following -BB, BEBA-I, ASA -daily weights, strict I&O, monitor for volume overload Unsafe discharge -Mandatory outpatient referral to assist with discharge planning/possible alf placement -Regular diet -Head CT with atrophy and white matter disease -Toxicology negative including alcohol -UA not consistent with UTI -Chest x-ray without acute cardiopulmonary process noted -Blood work consistent with mild dehydration -patient able to take p.o. fluids; no significant findings -Neuopsych consultation ordered to evaluate for decision making capacity MDM: tiana Puckett can be contacted at [phone] Code: Full GI ppx: PPI DVT ppx: hold Heparin d/t hematuria, SCD's Discussed Condition With: RN, CM and patient Discharge Planning: Patient requires correction placement, neuropsych consultation pending to evaluate for capacity Progress Note: Quality VTE Deep Vein Thrombosis/Pulmonary Embolism Present on Admission: No _ (1) Altered mental status Qualifiers: Altered mental status type: unspecified Coma depth: Coma timing: Qualified Code(s): R41.82 - Altered mental status, unspecified
--- NOTE | 2018-04-28 12:11 | P.NPEVAL ---
Patient History - Record/History Review Reason for Referral: The patient is a 77 year old right handed man who was found wandering, disoriented and with urine soaked pants who was initially admitted under Bat[place] Act. He has been hospitalized since 04/22/2018 pending placement after his family refused to care for him. Head CT shows atrophy and SVID. He reported that he is originally from [place], but cannot tell me how long he has been in [place]. He stated that he has a high school education, but he could not tell me his occupation, other than he worked for [employer]. He reported that he is . He could not tell me his address here in [place]. There is a concern about his decision making capacity. He is referred for baseline neurobehavioral status examination to assess cognitive, behavioral and emotional aspects of the injury and to provide treatment recommendations. [facility] - History History Provided By: Patient - Medical History Medical History: Medical History (Last Reviewed 04/25/18 @ 06:44 by Hernandez Rendon) Lymphoma Onset Date: ~1946 - Surgical History Surgical History: Surgical History (Last Reviewed 04/25/18 @ 06:44 by Hernandez Rendon) History of tonsillectomy - Family History Family History: Family History (Last Updated 04/22/18 @ 23:31 by LEIDY Fontenot) Other No significant family history - Tobacco History Second Hand Smoke Exposure: No Tobacco Use In Past 30 Days: Yes Smoking Status: Never smoker Tobacco Type: Cigarettes - Alcohol History How Often Do You Have a Drink Containing Alcohol: Never - Substance Use History Substance History: No History of Abuse - Travel History Recent Travel in the [place] Within the Last 8 Weeks: No Recent Travel Out of the Country Within the Last 8 Weeks: No - Immunization History Tetanus Immunization: <5 Years Medications Active Medications Aspirin (Aspirin) 325 mg PO DAILY [facility] Last Admin: 04/28/18 08:16 Dose: 325 mg Ceftriaxone Sodium 1,000 mg/ (Sodium Chloride) 100 mls @ 200 mls/hr IV.SIG Q24H [facility] Last Infusion: 04/28/18 08:48 Dose: Infused Lisinopril (Prinivil) 5 mg PO DAILY [facility] Last Admin: 04/28/18 08:17 Dose: 5 mg Metoprolol Tartrate (Lopressor) 25 mg PO BID [facility] Last Admin: 04/28/18 08:16 Dose: 25 mg Ondansetron HCl (Zofran Inj) 4 mg IV.PUSH Q6H PRN PRN Reason: NAUSEA Last Admin: 04/26/18 12:16 Dose: 4 mg Pantoprazole Sodium (Protonix) 40 mg PO DAILY [facility] Last Admin: 04/28/18 08:17 Dose: 40 mg Tamsulosin HCl (Flomax) 0.4 mg PO DAILY [facility] Last Admin: 04/28/18 08:17 Dose: 0.4 mg Mental Status Assessment - Mental Status Orientation: oriented to: Self, disoriented to: Place, Time, Situation Mental Status: WFL: Language/interactions, Impaired: Thought processing, Attention, Learning/memory, Problem-solving Absent: Hallucinations, Delusions Adjustment/Coping Assessment - Adjustment/Coping Adjustment/Coping: Severe: Awareness, Insight - Observation In terms of emotional functioning, the patient demonstrated significant challenges. This patient demonstrated no signs of agitation, impulsivity or disinhibition, nor was there remarkable evidence of a formal thought disorder or psychosis. There was no evidence of depression or anxiety. Thought content was free from suicidal, homicidal or paranoid ideation, and thought processes were tangential and concrete. The patients mood was euthymic to the point of occasional inappropriateness, and his affect was stable and appropriate. The patient appears to possess poor insight and awareness into their situation and within the limits of this brief evaluation, poor judgment. Behavior - Behavior Treatment Engagement: Average - Observation Behaviorally, the patient demonstrated no signs of agitation, impulsivity or disinhibition. There was no remarkable evidence of a formal thought disorder or psychosis. - Goals LTG Status: Deferred STG Status: Deferred - Team Members Team Members: Neuropsychologist Diagnosis/Discharge Plan - Diagnosis (1) Major neurocognitive disorder due to Alzheimer's disease, probable, without behavioral disturbance Status: Acute Impression: This is a 77 year old man found wandering the streets, disoriented and in urine soaked pants. Evaluation results are inconsistent with the normal aging process or the singular effects of emotional distress on cognition. He demonstrated difficulties with orientation, memory consolidation and complex reasoning. Head CT showed atrophy and SVID. Today's results are consistent with a major neurocognitive disorder and in the absence of biomedical causes for his major neurocognitive disorder, the most parsimonious results are an Alzheimer's etiology. Today's evaluation results preclude decision making capacity at this time. He will need placement in a facility with increased structure. Maximizing Acute Care Outcome: It is recommended that the patient be monitored for emergent behavioral impulsivity as the medical condition evolves. This patients neuropathological challenges may limit rehabilitation potential going forward, and these challenges will require specialized therapeutic skills to maximize outcome. At this point in the recovery process, the patient does not have cognitive capacity as the patient is unable to understand a situation and its likely consequences, nor is the patient able to manipulate information rationally. Cognitive capacity will be assessed throughout the recovery process. - Discharge Planning Anticipated Problems: Ongoing areas of concern will include behavioral impulsivity, lack of insight and judgment, which with the proper environment and pharmacology is expected to improve with time and treatment. It is unlikely that decision making capacity will improve however. Treatment Plan: This clinician will continue to follow with you throughout the course of this patients emergent treatment, and I will be available to meet with the patient s family/support system to facilitate their understanding and the ongoing care of their family member. The goals of neuropsychological intervention shall be both educational and supportive to the family/support system as is deemed clinically appropriate. Thank you for the opportunity to assist in this patients care. Pio Hadley, Ph.D., ABPP Board Certified in Clinical Neuropsychology [place] [employer] Professional Psychology [place] Licensed Psychologist #[id number]
--- NOTE | 2018-04-28 14:09 | P.PNCA ---
Subjective Interval history: Patient denies any CP, pressure, palpitations, dizziness, edema or SOB. Medications and Allergies Allergies Allergy/AdvReac Type Severity Reaction Status Date / Time No Known Allergies Allergy Verified 04/21/18 14:50 Home Medications Medication Instructions Recorded Confirmed Type Unable to Obtain Home Meds 04/21/18 04/21/18 History Active Medications: Active Medications Aspirin (Aspirin) 325 mg PO DAILY [facility] Last Admin: 04/28/18 08:16 Dose: 325 mg Ceftriaxone Sodium 1,000 mg/ (Sodium Chloride) 100 mls @ 200 mls/hr IV.SIG Q24H [facility] Last Infusion: 04/28/18 08:48 Dose: Infused Lisinopril (Prinivil) 5 mg PO DAILY [facility] Last Admin: 04/28/18 08:17 Dose: 5 mg Metoprolol Tartrate (Lopressor) 25 mg PO BID [facility] Last Admin: 04/28/18 08:16 Dose: 25 mg Ondansetron HCl (Zofran Inj) 4 mg IV.PUSH Q6H PRN PRN Reason: NAUSEA Last Admin: 04/26/18 12:16 Dose: 4 mg Pantoprazole Sodium (Protonix) 40 mg PO DAILY [facility] Last Admin: 04/28/18 08:17 Dose: 40 mg Tamsulosin HCl (Flomax) 0.4 mg PO DAILY [facility] Last Admin: 04/28/18 08:17 Dose: 0.4 mg Physical Exam Vital signs: Vital Signs 04/27/18 16:00 04/27/18 20:00 04/28/18 00:00 Temperature 97.1 F L 97.8 F Pulse Rate 79 74 71 Respiratory Rate 18 18 Blood Pressure 110/69 108/59 L Pulse Oximetry 98 97 04/28/18 04:00 04/28/18 07:41 04/28/18 11:11 Temperature 96.9 F L 97.3 F L 97.5 F L Pulse Rate 67 68 78 Respiratory Rate 18 16 16 Blood Pressure 121/77 124/73 110/62 Pulse Oximetry 97 98 98 Intake & Output 04/27/18 04/28/18 04/28/18 18:59 06:59 18:59 Intake Total 100 / 100 700 / 700 100 / 100 Output Total 900 / 900 Balance 100 / 100 -200 / -200 100 / 100 Intake: IV 100 / 100 500 / 500 100 / 100 NS Inj 500 ML @ 50 mls/hr IV. 500 / 500 CONT .Q10H [facility] Rx#:[id number] Rocephin Inj 1,000 MG In NS Inj 100 / 100 100 / 100 100 ML @ 200 mls/hr IV.SIG Q24H [facility] Rx#:[id number] Oral 200 / 200 Output: Urine 900 / 900 Other: Date of Last Bowel Movement 04/25/18 - Constitutional no acute distress - Routine HEENT Exam Head: Present: normocephalic Eye: Present: PERRL ENT: Present: mucous membranes moist - Routine Neck Exam Present: full ROM - Routine Respiratory Exam Present: CTA bilaterally - Routine Cardiovascular Exam Present: S1, S2, irregular rhythm - Routine Abdominal Exam Present: normoactive bowel sounds - Routine Extremities Exam Present: full ROM, pulses intact, normal capillary refill. Absent: cyanosis, clubbing, edema - Routine Skin Exam Present: intact - Routine Neurological Exam Present: alert, altered mental status - Detailed Neurological Exam: Coma Scale Eye Opening: Spontaneous Verbal Response: Confused Motor Response: Obey commands [place] Coma Scale Total: 14 - Routine Psychiatric Exam Present: normal affect - Urinary Catheter Management Indwelling Urethral Catheter Cath placed during this visit: yes Urethral indwelling: Yes Reason for continuing: Acute urinary retention Insertion date: 04/26/18 Insertion time: 13:25 Results 04/28/18 04:40 04/28/18 04:40 CBC 04/26/18 04/27/18 04/28/18 Range/Units 13:28 07:53 04:40 WBC 8.3 5.1 4.8 (4.0-11.0) th/mm3 RBC 3.97 L 3.46 L 3.56 L (4.50-5.90) mil/mm3 Hgb 13.9 12.3 L 12.4 L (13.0-17.0) gm/dL Hct 40.9 35.0 L 35.4 L (39.0-51.0) % Plt Count 159 112 L 124 L (150-450) th/mm3 Neut # (Auto) 7.1 3.6 3.4 (1.8-7.7) th/mm3 Lymph # (Auto) 0.5 L 0.8 L 0.8 L (1.0-4.8) th/mm3 Nuckolls # (Auto) 0.6 0.5 0.5 (0.0-0.9) th/mm3 Eos # (Auto) 0.0 0.1 0.1 (0.0-0.4) th/mm3 Baso # (Auto) 0.0 0.0 0.0 (0.0-0.2) th/mm3 Comprehensive Metabolic Panel 04/26/18 04/27/18 04/28/18 Range/Units 13:28 07:53 04:40 Sodium 142 141 140 (136-145) meq/L Potassium 4.3 4.3 4.3 (3.5-5.1) meq/L Chloride 107 110 H 108 H (98-107) meq/L Carbon Dioxide 28.4 27.1 26.8 (21.0-32.0) meq/L BUN 45 H 31 H 26 H (7-18) mg/dL Creatinine 3.21 H 1.56 H 1.15 (0.60-1.30) mg/dL Calcium 8.2 L 7.9 L 8.2 L (8.5-10.1) mg/dL Intake and Output 04/27/18 04/28/18 04/28/18 22:59 06:59 14:59 Intake Total 700 / 700 100 / 100 Output Total 900 / 900 Balance -200 / -200 100 / 100 Intake: IV 500 / 500 100 / 100 NS Inj 500 ML @ 50 mls/hr IV. 500 / 500 CONT .Q10H [facility] Rx#:[id number] Rocephin Inj 1,000 MG In NS Inj 100 / 100 100 ML @ 200 mls/hr IV.SIG Q24H [facility] Rx#:[id number] Oral 200 / 200 Output: Urine 900 / 900 Other: Date of Last Bowel Movement 04/25/18 Assessment and Plan - Assessment (1) Altered mental status Code(s): R41.82 - Altered mental status, unspecified Status: Acute (2) Atrial fib/flutter, transient Status: Acute - Plan We will continue the BB's and BEBA/ARBs for CHF treatment. Discussed anticoagulation with urology due to hematuria and the need for anticoagulation due to patient remaining in atrial flutter. We will start low dose ASA at this time for anticoagulation. Patient continues to have AMS, neurology evaluation in progress. We will continue to monitor patient during hospitalization. The patient was seen and evaluated by Dr. Naidu who participated in care, management and decision making. - Attending Attestation Patient seen and examined. I reviewed and agree with the evaluation and plan as presented. Continue tx for CHF. Start baby ASA. Neurology evaluation in progress. (1) Altered mental status Qualifiers: Altered mental status type: unspecified Qualified Code(s): R41.82 - Altered mental status, unspecified
--- NOTE | 2018-04-28 16:33 | P.PNURO ---
Subjective Patient symptoms today: Pt seen and examined. Feeling better. Objective Vital Signs: Vital Signs 04/27/18 20:00 04/28/18 00:00 04/28/18 04:00 Temperature 97.1 F L 97.8 F 96.9 F L Pulse Rate 74 71 67 Respiratory Rate 18 Blood Pressure 110/69 108/59 L 121/77 Pulse Oximetry 98 97 97 04/28/18 07:41 04/28/18 11:11 04/28/18 15:31 Temperature 97.3 F L 97.5 F L 97.9 F Pulse Rate 68 78 77 Respiratory Rate 17 Blood Pressure 124/73 110/62 116/68 Pulse Oximetry 98 98 97 Intake & Output 04/27/18 04/28/18 04/28/18 18:59 06:59 18:59 Intake Total 100 / 100 700 / 700 100 / 100 Output Total 900 / 900 Balance 100 / 100 -200 / -200 100 / 100 Intake: IV 100 / 100 500 / 500 100 / 100 NS Inj 500 ML @ 50 mls/hr IV. 500 / 500 CONT .Q10H [facility] Rx#:[id number] Rocephin Inj 1,000 MG In NS Inj 100 / 100 100 / 100 100 ML @ 200 mls/hr IV.SIG Q24H [facility] Rx#:[id number] Oral 200 / 200 Output: Urine 900 / 900 Other: Date of Last Bowel Movement 04/25/18 Result Diagrams: 04/28/18 04:40 04/28/18 04:40 Medications and IVs: Active Medications Generic Name Dose Route Start Last Admin Trade Name Freq PRN Reason Stop Dose Admin Aspirin 81 mg 04/28/18 14:09 Aspirin PO DAILY [facility] Ceftriaxone Sodium 1,000 mg/ 100 mls @ 200 mls/hr 04/27/18 08:00 04/28/18 08: 48 Sodium Chloride IV.SIG Infused Q24H [facility] Infusion Lisinopril 5 mg 04/26/18 09:00 04/28/18 08:17 Prinivil PO 5 mg DAILY [facility] Administration Metoprolol Tartrate 25 mg 04/25/18 09:00 04/28/18 08:16 Lopressor PO 25 mg BID [facility] Administration Ondansetron HCl 4 mg 04/26/18 12:00 04/26/18 12:16 Zofran Inj IV.PUSH 4 mg Q6H PRN Administration NAUSEA Pantoprazole Sodium 40 mg 04/26/18 15:15 04/28/18 08:17 Protonix PO 40 mg DAILY [facility] Administration Tamsulosin HCl 0.4 mg 04/26/18 21:00 04/28/18 08:17 Flomax PO 0.4 mg DAILY [facility] Administration Objective Remarks: Abd:soft,nt,nd Blair: urine clear 04/28 Abd:soft,nt,nd Blair: urine clear Assessment and Plan - Plan 77 y.o male with ARF with BPH with obstruction and hematuria after blair insertion Maintain blair as ARF is improving. Creatinine down to 1.5 from 3 Continue Flomax Void trial in the next few days 04/28 77 y.o male with ARF with BPH with obstruction and hematuria after blair insertion Maintain blair as ARF is improving. Continue Flomax Void trial in the next few days
[2018-04-29 05:11] LABS: Calcium 8.5 mg/dL (8.5-10.1); Carbon Dioxide 26.9 meq/L (21.0-32.0); Potassium 4.3 meq/L (3.5-5.1)
[2018-04-29] MEDS: Aspirin 325 MG Tablet PO SCH (08:21)
[2018-04-29] MEDS: Metoprolol Tartrate 25 MG Tablet PO SCH ×2 (08:22→20:37)
[2018-04-29] MEDS: Lisinopril 5 MG Tablet PO SCH (08:22)
--- NOTE | 2018-04-29 10:32 | P.PNURO ---
Subjective Patient symptoms today: Pt seen and examined. Feeling better. BM this AM. Objective Vital Signs: Vital Signs 04/28/18 11:11 04/28/18 15:03 04/28/18 15:31 Temperature 97.5 F L 97.9 F Pulse Rate 78 79 77 Respiratory Rate 16 17 Blood Pressure 110/62 116/68 Pulse Oximetry 98 97 04/28/18 19:08 04/28/18 19:35 04/28/18 19:58 Temperature 98.3 F Pulse Rate 67 113 H 118 H Respiratory Rate 14 Blood Pressure 98/65 L Pulse Oximetry 96 04/28/18 20:00 04/28/18 23:57 04/29/18 04:00 Temperature 98.0 F 98.4 F Pulse Rate 113 H 67 67 Respiratory Rate 18 16 Blood Pressure 110/68 103/64 110/67 Pulse Oximetry 96 94 L 04/29/18 07:59 Temperature 96.6 F L Pulse Rate 66 Respiratory Rate 16 Blood Pressure 123/73 Pulse Oximetry 95 Intake & Output 04/28/18 04/29/18 04/29/18 18:59 06:59 18:59 Intake Total 340 / 340 100 / 100 Output Total 1500 / 1500 1100 / 1100 Balance -1160 / -1160 -1100 / -1100 100 / 100 Intake: IV 100 / 100 100 / 100 Rocephin Inj 1,000 MG In NS Inj 100 / 100 100 / 100 100 ML @ 200 mls/hr IV.SIG Q24H [facility] Rx#:[id number] Oral 240 / 240 Output: Urine 1100 / 1100 Urine Amount (Catheter) 1500 / 1500 Indwelling Urethral Catheter 1500 / 1500 Other: Date of Last Bowel Movement 04/27/18 Result Diagrams: 04/28/18 04:40 04/29/18 03:30 Medications and IVs: Active Medications Generic Name Dose Route Start Last Admin Trade Name Freq PRN Reason Stop Dose Admin Aspirin 81 mg 04/28/18 14:09 04/29/18 08:21 Aspirin PO 81 mg DAILY [facility] Administration Ceftriaxone Sodium 1,000 mg/ 100 mls @ 200 mls/hr 04/27/18 08:00 04/29/18 09: 00 Sodium Chloride IV.SIG Infused Q24H [facility] Infusion Lisinopril 5 mg 04/26/18 09:00 04/29/18 08:22 Prinivil PO 5 mg DAILY [facility] Administration Metoprolol Tartrate 25 mg 04/25/18 09:00 04/29/18 08:22 Lopressor PO 25 mg BID [facility] Administration Ondansetron HCl 4 mg 04/26/18 12:00 04/26/18 12:16 Zofran Inj IV.PUSH 4 mg Q6H PRN Administration NAUSEA Pantoprazole Sodium 40 mg 04/26/18 15:15 04/29/18 08:22 Protonix PO 40 mg DAILY [facility] Administration Tamsulosin HCl 0.4 mg 04/26/18 21:00 04/29/18 08:22 Flomax PO 0.4 mg DAILY [facility] Administration Objective Remarks: Abd:soft,nt,nd Blair: urine clear 04/28 Abd:soft,nt,nd Blair: urine clear 04/29 Abd:soft,nt,nd Blair: urine clear Assessment and Plan - Plan 77 y.o male with ARF with BPH with obstruction and hematuria after blair insertion Maintain blair as ARF is improving. Creatinine down to 1.5 from 3 Continue Flomax Void trial in the next few days 04/28 77 y.o male with ARF with BPH with obstruction and hematuria after blair insertion Maintain blair as ARF is improving. Continue Flomax Void trial in the next few days 04/29 77 y.o male with ARF with BPH with obstruction and hematuria after blair insertion Maintain blair as ARF is improving. Continue Flomax Void trial in the next few days
--- NOTE | 2018-04-29 11:58 | P.PNCA ---
Subjective Interval history: Patient denies any CP, pressure, palpitations, dizziness, edema or SOB. Patient states that he feels great. Medications and Allergies Allergies Allergy/AdvReac Type Severity Reaction Status Date / Time No Known Allergies Allergy Verified 04/21/18 14:50 Home Medications Medication Instructions Recorded Confirmed Type Unable to Obtain Home Meds 04/21/18 04/21/18 History Active Medications: Active Medications Aspirin (Aspirin) 81 mg PO DAILY [facility] Last Admin: 04/29/18 08:21 Dose: 81 mg Ceftriaxone Sodium 1,000 mg/ (Sodium Chloride) 100 mls @ 200 mls/hr IV.SIG Q24H [facility] Last Infusion: 04/29/18 09:00 Dose: Infused Lisinopril (Prinivil) 5 mg PO DAILY [facility] Last Admin: 04/29/18 08:22 Dose: 5 mg Metoprolol Tartrate (Lopressor) 25 mg PO BID [facility] Last Admin: 04/29/18 08:22 Dose: 25 mg Ondansetron HCl (Zofran Inj) 4 mg IV.PUSH Q6H PRN PRN Reason: NAUSEA Last Admin: 04/26/18 12:16 Dose: 4 mg Pantoprazole Sodium (Protonix) 40 mg PO DAILY [facility] Last Admin: 04/29/18 08:22 Dose: 40 mg Tamsulosin HCl (Flomax) 0.4 mg PO DAILY [facility] Last Admin: 04/29/18 08:22 Dose: 0.4 mg Physical Exam Vital signs: Vital Signs 04/28/18 15:03 04/28/18 15:31 04/28/18 19:08 Temperature 97.9 F Pulse Rate 79 77 67 Respiratory Rate 17 Blood Pressure 116/68 Pulse Oximetry 97 04/28/18 19:35 04/28/18 19:58 04/28/18 20:00 Temperature 98.3 F Pulse Rate 113 H 118 H 113 H Respiratory Rate 14 Blood Pressure 98/65 L 110/68 Pulse Oximetry 96 04/28/18 23:57 04/29/18 04:00 04/29/18 07:59 Temperature 98.0 F 98.4 F 96.6 F L Pulse Rate 67 67 66 Respiratory Rate 18 16 16 Blood Pressure 103/64 110/67 123/73 Pulse Oximetry 96 94 L 95 Intake & Output 12/17/18 12/18/18 12/18/18 18:59 06:59 18:59 Intake Total 340 / 340 100 / 100 Output Total 1500 / 1500 1100 / 1100 Balance -1160 / -1160 -1100 / -1100 100 / 100 Intake: IV 100 / 100 100 / 100 Rocephin Inj 1,000 MG In NS Inj 100 / 100 100 / 100 100 ML @ 200 mls/hr IV.SIG Q24H [facility] Rx#:[id number] Oral 240 / 240 Output: Urine 1100 / 1100 Urine Amount (Catheter) 1500 / 1500 Indwelling Urethral Catheter 1500 / 1500 Other: Date of Last Bowel Movement 04/27/18 04/29/18 - Constitutional no acute distress - Routine HEENT Exam Head: Present: normocephalic Eye: Present: PERRL ENT: Present: mucous membranes moist - Routine Neck Exam Present: full ROM - Routine Respiratory Exam Present: CTA bilaterally - Routine Cardiovascular Exam Present: S1, S2, irregular rhythm. Absent: murmur, gallop - Routine Abdominal Exam Present: normoactive bowel sounds - Routine Extremities Exam Present: full ROM, pulses intact, normal capillary refill. Absent: cyanosis, clubbing, edema - Routine Skin Exam Present: intact - Routine Neurological Exam Present: alert, altered mental status - Detailed Neurological Exam: Coma Scale Eye Opening: Spontaneous Verbal Response: Oriented Motor Response: Obey commands [place] Coma Scale Total: 15 - Routine Psychiatric Exam Present: normal affect - Urinary Catheter Management Indwelling Urethral Catheter Cath placed during this visit: yes Urethral indwelling: Yes Reason for continuing: Acute urinary retention Insertion date: 04/26/18 Insertion time: 13:25 Results 04/28/18 04:40 04/29/18 03:30 CBC 04/28/18 Range/Units 04:40 WBC 4.8 (4.0-11.0) th/mm3 RBC 3.56 L (4.50-5.90) mil/mm3 Hgb 12.4 L (13.0-17.0) gm/dL Hct 35.4 L (39.0-51.0) % Plt Count 124 L (150-450) th/mm3 Neut # (Auto) 3.4 (1.8-7.7) th/mm3 Lymph # (Auto) 0.8 L (1.0-4.8) th/mm3 [place] # (Auto) 0.5 (0.0-0.9) th/mm3 Eos # (Auto) 0.1 (0.0-0.4) th/mm3 Baso # (Auto) 0.0 (0.0-0.2) th/mm3 Comprehensive Metabolic Panel 04/28/18 04/29/18 Range/Units 04:40 03:30 Sodium 140 140 (136-145) meq/L Potassium 4.3 4.3 (3.5-5.1) meq/L Chloride 108 H 107 (98-107) meq/L Carbon Dioxide 26.8 26.9 (21.0-32.0) meq/L BUN 26 H 27 H (7-18) mg/dL Creatinine 1.15 1.16 (0.60-1.30) mg/dL Calcium 8.2 L 8.5 (8.5-10.1) mg/dL Intake and Output 04/28/18 04/29/18 04/29/18 22:59 06:59 14:59 Intake Total 240 / 240 100 / 100 Output Total 1500 / 1500 1100 / 1100 Balance -1260 / -1260 -1100 / -1100 100 / 100 Intake: IV 100 / 100 Rocephin Inj 1,000 MG In NS Inj 100 / 100 100 ML @ 200 mls/hr IV.SIG Q24H [facility] Rx#:[id number] Oral 240 / 240 Output: Urine 1100 / 1100 Urine Amount (Catheter) 1500 / 1500 Indwelling Urethral Catheter 1500 / 1500 Other: Date of Last Bowel Movement 04/27/18 04/29/18 Assessment and Plan - Assessment (1) Altered mental status Code(s): R41.82 - Altered mental status, unspecified Status: Acute (2) Atrial fib/flutter, transient Status: Acute - Plan There are no signs of active bleeding at this time, continue anticoagulation with baby ASA. Continue tx for CHF. No new cardiac issues at this time, we will continue with current cardiac treatment plan. Neurology evaluation in progress due to patient's AMS. We will continue to monitor patient during hospitalization. The patient was seen and evaluated by Dr. Naidu who participated in care, management and decision making. - Attending Attestation Patient seen and examined. I reviewed and agree with the evaluation and plan as presented. Continue tx for CHF and AF. No recurrent bleeding. Increase activity. (1) Altered mental status Qualifiers: Altered mental status type: unspecified Qualified Code(s): R41.82 - Altered mental status, unspecified
--- NOTE | 2018-04-29 13:03 | P.PNIM ---
Subjective Interval history: Follow-up A. fib/flutter, hematuria, BPH, urinary retention Patient resting in bed and watching TV. No acute distress noted. He denies any suprapubic pain, nausea or vomiting. Blair catheter draining to gravity with clear, yellow urine. No hematuria noted. Patient reports feeling well. Physical Exam Vital signs: Last Vital Signs Temp 96.6 F L 04/29/18 12:00 Pulse 68 04/29/18 12:00 Resp 16 04/29/18 12:00 BP 82/50 L 04/29/18 12:00 Pulse Ox 96 04/29/18 12:00 Intake & Output 04/27/18 04/28/18 04/29/18 04/30/18 06:59 06:59 06:59 06:59 Intake Total 500 / 500 800 / 800 340 / 340 100 / 100 Output Total 2200 / 2200 900 / 900 2600 / 2600 Balance -1700 / -1700 -100 / -100 -2260 / -2260 100 / 100 Weight 64.3 kg Narrative: GENERAL: Tall thin unkempt appearing elderly male patient in NAD. SKIN: Warm and dry. No rash. HEENT: Normocephalic. Atraumatic. Pupils equal and round. Mucous membranes pink and moist. CARDIOVASCULAR: Irregular rate and rhythm. No murmur appreciated. RESPIRATORY: No accessory muscle use. Clear to auscultation. Breath sounds equal bilaterally. GASTROINTESTINAL: Abdomen soft, non-tender, nondistended. Normoactive bowel sounds x4. : blair catheter in place draining to gravity MUSCULOSKELETAL: No obvious deformities. Extremities without clubbing, cyanosis , or edema. NEUROLOGICAL: Awake and alert. No obvious cranial nerve deficits. Moving all extremities spontaneously. PSYCHIATRIC: limited insight and judgement. Urinary Catheter Management Indwelling Urethral Catheter: Cath placed during this visit: yes Urethral indwelling: Yes Reason for continuing: Acute urinary retention Insertion date: 04/26/18 Insertion time: 13:25 Results Labs CBC & Chem 7: 04/28/18 04:40 04/29/18 03:30 Assessment and Plan (1) Altered mental status: Code(s): R41.82 - Altered mental status, unspecified Status: Acute (2) Atrial fib/flutter, transient: Status: Acute Plan Mr. Guerrero is a 77 year-old male with a possible history of lymphoma who presented to the ER on 04/22/2018 escorted by the police under [place] Act for evaluation after he was found disoriented and wandering around a neighborhood in [place] with urine soaked pants looking for his son. He was evaluated by the psychiatric MANAGER [employer] for psychiatry and she lifted the Batista Act following her evaluation. The patient is being kept here pending placement after the patient's family refused to pick him up from the hospital tonight. He is unable to provide with any specific medical information. He does acknowledge being diagnosed with lymphoma but he is tangential when discussing this and is unable to tell me any of the treatment he had for it or the names of any doctors he saw for it. He denies taking any medications. He can seem very oriented at times but fails to be able to provide any specific details about himself and he is a very difficult and poor historian. Acute urinary retention - stable -bladder scan showed > 600 ml -blair cath inserted with 800 ml of output -US kidney/renal/bladder completed and shows a decompressed bladder, no hydronephrosis, no renal mass, significant prostatic hypertrophy -continue Flomax -Urology consulted and following -voiding trial in next few days Gross Hematuria - resolved -Urology consulted and following -H/H stable Acute kidney injury -improved s/p hydration w/ IV fluids -Cr 3.21 --> 1.56 --> 1.16 -monitor Urinary tract infection -urine cx providencia rettgeri and proteus mirabilis both sensitive to Ceftriaxone -continue Ceftriaxone IV (day 3) Prostatic hypertrophy -Flomax, Blair cath -Urology consulted and following Atrial Fibrillation with RVR - now rate controlled -HR 60's, continue tele monitoring -[id number] score of 2 due to age although unclear PMH, patient likely poor candidate for anticoagulation due to concern for noncompliance -started on aspirin 325mg and metoprolol 25mg bid -echocardiogram shows severely reduced systolic left ventricular function with EF of 25-30% -cardiology consulted and following Systolic heart failure, chronic - no acute exacerbation at present time -see echo findings as noted above -cardiology consulted and following -BB, BEBA-I, ASA -daily weights, strict I&O, monitor for volume overload Unsafe discharge -Head CT with atrophy and white matter disease -[place] consulted, patient does not have cognitive capacity MDM: son Italo can be contacted at [phone] Code: Full GI ppx: PPI DVT ppx: hold Heparin d/t hematuria, SCD's Discussed Condition With: RN, patient Discharge Planning: Patient accepted at [facility], discharge planning for Saturday. Progress Note: Quality VTE Deep Vein Thrombosis/Pulmonary Embolism Present on Admission: No _ (1) Altered mental status Qualifiers: Altered mental status type: unspecified Coma depth: Coma timing: Qualified Code(s): R41.82 - Altered mental status, unspecified
--- NOTE | 2018-04-30 08:18 | P.PNCA ---
Subjective Interval history: Patient denies any CP, pressure, palpitations, dizziness, edema or SOB. Medications and Allergies Allergies Allergy/AdvReac Type Severity Reaction Status Date / Time No Known Allergies Allergy Verified 04/21/18 14:50 Home Medications Medication Instructions Recorded Confirmed Type Unable to Obtain Home Meds 04/21/18 04/21/18 History Active Medications: Active Medications Aspirin (Aspirin) 81 mg PO DAILY [facility] Last Admin: 04/29/18 08:21 Dose: 81 mg Ceftriaxone Sodium 1,000 mg/ (Sodium Chloride) 100 mls @ 200 mls/hr IV.SIG Q24H [facility] Last Infusion: 04/29/18 09:00 Dose: Infused Lisinopril (Prinivil) 5 mg PO DAILY [facility] Last Admin: 04/29/18 08:22 Dose: 5 mg Metoprolol Tartrate (Lopressor) 25 mg PO BID [facility] Last Admin: 04/29/18 20:37 Dose: Not Given Ondansetron HCl (Zofran Inj) 4 mg IV.PUSH Q6H PRN PRN Reason: NAUSEA Last Admin: 04/26/18 12:16 Dose: 4 mg Pantoprazole Sodium (Protonix) 40 mg PO DAILY [facility] Last Admin: 04/29/18 08:22 Dose: 40 mg Tamsulosin HCl (Flomax) 0.4 mg PO DAILY [facility] Last Admin: 04/29/18 08:22 Dose: 0.4 mg Physical Exam Vital signs: Vital Signs 04/29/18 12:00 04/29/18 13:20 04/29/18 16:00 Temperature 96.6 F L 97.2 F L 97.2 F L Pulse Rate 68 70 89 Respiratory Rate 16 18 18 Blood Pressure 82/50 L 101/66 149/96 H Pulse Oximetry 96 97 99 04/29/18 20:00 04/29/18 23:49 04/29/18 23:59 Temperature 97.3 F L 98.2 F Pulse Rate 100 H 67 121 H Respiratory Rate 17 17 Blood Pressure 86/56 L 94/52 L Pulse Oximetry 97 97 04/30/18 04:00 04/30/18 04:20 Temperature 97.7 F Pulse Rate 71 77 Respiratory Rate 18 Blood Pressure 102/50 L Pulse Oximetry 94 L Intake & Output 04/29/18 04/30/18 04/30/18 18:59 06:59 18:59 Intake Total 580 / 580 480 / 480 Output Total 575 / 575 1999 Balance 5 / 5 -1520 / -1520 Weight 64 kg Intake: IV 100 / 100 Rocephin Inj 1,000 MG In NS Inj 100 / 100 100 ML @ 200 mls/hr IV.SIG Q24H [facility] Rx#:[id number] Oral 480 / 480 480 / 480 Output: Urine Amount (Catheter) 575 575 1999 Indwelling Urethral Catheter 57 [id number] Other: Date of Last Bowel Movement 04/29/18 # Bowel Movements 1 - Constitutional no acute distress - Routine HEENT Exam Head: Present: normocephalic Eye: Present: PERRL ENT: Present: mucous membranes moist - Routine Neck Exam Present: full ROM - Routine Respiratory Exam Present: CTA bilaterally - Routine Cardiovascular Exam Present: S1, S2, irregular rhythm - Routine Abdominal Exam Present: normoactive bowel sounds - Routine Extremities Exam Present: full ROM, pulses intact, normal capillary refill. Absent: cyanosis, clubbing, edema - Routine Skin Exam Present: intact - Routine Neurological Exam Present: alert, altered mental status - Detailed Neurological Exam: Coma Scale Eye Opening: Spontaneous Verbal Response: Confused Motor Response: Obey commands [place] Coma Scale Total: 14 - Urinary Catheter Management Indwelling Urethral Catheter Cath placed during this visit: yes Urethral indwelling: Yes Reason for continuing: Other continuation reason Insertion date: 04/26/18 Insertion time: 13:25 Results 04/28/18 04:40 04/29/18 03:30 Comprehensive Metabolic Panel 04/29/18 Range/Units 03:30 Sodium 140 (136-145) meq/L Potassium 4.3 (3.5-5.1) meq/L Chloride 107 (98-107) meq/L Carbon Dioxide 26.9 (21.0-32.0) meq/L BUN 27 H (7-18) mg/dL Creatinine 1.16 (0.60-1.30) mg/dL Calcium 8.5 (8.5-10.1) mg/dL Intake and Output 04/29/18 04/30/18 04/30/18 22:59 06:59 14:59 Intake Total 480 / 480 480 / 480 Output Total 575 / 575 1999 Balance -95 / -95 -1520 / -1520 Intake: Oral 480 / 480 480 / 480 Output: Urine Amount (Catheter) 575 / 575 1999 Indwelling Urethral Catheter 575 / 575 1999 Other: Date of Last Bowel Movement 04/29/18 # Bowel Movements 1 Weight 64 kg Assessment and Plan - Assessment (1) Altered mental status Code(s): R41.82 - Altered mental status, unspecified Status: Acute (2) Atrial fib/flutter, transient Status: Acute - Plan Patient remains in atrial fibrillation at this time, rate controlled. We will continue current treatment with baby ASA for anticoagulation. Patient continues to have AMS, neurology evaluation in progress. Patient has Romero cath in place without signs of hematuria. There have been no new cardiac issues noted, we will continue with current cardiac treatment plan We will continue to monitor patient during hospitalization. The patient was seen and evaluated by Dr. Naidu who participated in care, management and decision making. - Attending Attestation Patient seen and examined. I reviewed and agree with the evaluation and plan as presented. Continue tx for CHF and AF. Increase activity, PT. (1) Altered mental status Qualifiers: Altered mental status type: unspecified Qualified Code(s): R41.82 - Altered mental status, unspecified
[2018-04-30] MEDS: Lisinopril 5 MG Tablet PO SCH (09:33)
[2018-04-30] MEDS: Metoprolol Tartrate 25 MG Tablet PO SCH ×2 (09:33→20:01)
[2018-04-30] MEDS: Aspirin 325 MG Tablet PO SCH (09:35)
[2018-04-30] MEDS ORDERED: Digoxin 250 MCG Tablet PO ONE (10:25)
--- NOTE | 2018-04-30 13:29 | P.PNURO ---
Subjective Patient symptoms today: Pt feels well. No complaints. Objective Vital Signs: Vital Signs 04/29/18 16:00 04/29/18 20:00 04/29/18 23:49 Temperature 97.2 F L 97.3 F L 98.2 F Pulse Rate 89 100 H 67 Respiratory Rate 18 17 17 Blood Pressure 149/96 H 86/56 L 94/52 L Pulse Oximetry 99 97 97 04/29/18 23:59 04/30/18 04:00 04/30/18 04:20 Temperature 97.7 F Pulse Rate 121 H 71 77 Respiratory Rate 18 Blood Pressure 102/50 L Pulse Oximetry 94 L 04/30/18 08:00 04/30/18 11:46 Temperature 97.4 F L 97.4 F L Pulse Rate 88 66 Respiratory Rate 16 17 Blood Pressure 110/70 98/60 L Pulse Oximetry 99 99 Intake & Output 04/29/18 04/30/18 04/30/18 18:59 06:59 18:59 Intake Total 580 / 580 480 / 480 100 / 100 Output Total 575 / 575 1999 Balance 5 / 5 -1520 / -1520 100 / 100 Weight 64 kg Intake: IV 100 / 100 100 / 100 Rocephin Inj 1,000 MG In NS Inj 100 / 100 100 / 100 100 ML @ 200 mls/hr IV.SIG Q24H [facility] Rx#:[id number] Oral 480 / 480 480 / 480 Output: Urine Amount (Catheter) 575 / 575 1999 Indwelling Urethral Catheter 575 / 575 1999 Other: Date of Last Bowel Movement 04/29/18 # Bowel Movements 1 Result Diagrams: 04/28/18 04:40 04/29/18 03:30 Medications and IVs: Active Medications Generic Name Dose Route Start Last Admin Trade Name Freq PRN Reason Stop Dose Admin Aspirin 81 mg 04/28/18 14:09 04/30/18 09:35 Aspirin PO 81 mg DAILY [facility] Administration Ceftriaxone Sodium 1,000 mg/ 100 mls @ 200 mls/hr 04/27/18 08:00 04/30/18 11: 04 Sodium Chloride IV.SIG Infused Q24H [facility] Infusion Lisinopril 5 mg 04/26/18 09:00 04/30/18 09:33 Prinivil PO 5 mg DAILY [facility] Administration Metoprolol Tartrate 25 mg 04/25/18 09:00 12/19/18 09:33 Lopressor PO 25 mg BID [facility] Administration Ondansetron HCl 4 mg 04/26/18 12:00 04/26/18 12:16 Zofran Inj IV.PUSH 4 mg Q6H PRN Administration NAUSEA Pantoprazole Sodium 40 mg 04/26/18 15:15 04/30/18 09:34 Protonix PO 40 mg DAILY [facility] Administration Tamsulosin HCl 0.4 mg 04/26/18 21:00 04/30/18 09:33 Flomax PO 0.4 mg DAILY [facility] Administration Objective Remarks: Abd:soft,nt,nd Blair: urine clear 04/28 Abd:soft,nt,nd Blair: urine clear 04/29 Abd:soft,nt,nd Blair: urine clear 04/30 Abd:soft,nt,nd Blair: urine clear Assessment and Plan - Plan 77 y.o male with ARF with BPH with obstruction and hematuria after blair insertion Maintain blair as ARF is improving. Creatinine down to 1.5 from 3 Continue Flomax Void trial in the next few days 04/28 77 y.o male with ARF with BPH with obstruction and hematuria after blair insertion Maintain blair as ARF is improving. Continue Flomax Void trial in the next few days 04/29 77 y.o male with ARF with BPH with obstruction and hematuria after blair insertion Maintain blair as ARF is improving. Continue Flomax Void trial in the next few days 04/30 77 y.o male with ARF with BPH with obstruction and hematuria after blair insertion Continue Flomax Void trial in AM
--- NOTE | 2018-04-30 14:03 | P.PNIM ---
Subjective Interval history: 77-year-old male admitted for altered mental status secondary to urinary tract infection. He had an episode of tachycardia at rehab yesterday and was transferred to inpatient status for further management. He states that he feels fine today and even felt fine yesterday during these episodes. Physical Exam Vital signs: Last Vital Signs Temp 97.4 F L 04/30/18 11:46 Pulse 66 04/30/18 11:46 Resp 17 04/30/18 11:46 BP 98/60 L 04/30/18 11:46 Pulse Ox 99 04/30/18 11:46 Intake & Output 04/28/18 04/29/18 04/30/18 05/01/18 06:59 06:59 06:59 06:59 Intake Total 800 / 800 340 / 340 1060 / 1060 100 / 100 Output Total 900 / 900 2600 / 2600 2575 / 2575 Balance -100 / -100 -2260 / -2260 -1515 / -1515 100 / 100 Weight 64 kg Narrative: GENERAL: Tall thin unkempt appearing elderly male patient in [facility]. SKIN: Warm and dry. No rash. HEENT: Normocephalic. Atraumatic. Pupils equal and round. Mucous membranes pink and moist. CARDIOVASCULAR: Irregularly irregular. No murmur appreciated. RESPIRATORY: No accessory muscle use. Clear to auscultation. Breath sounds equal bilaterally. GASTROINTESTINAL: Abdomen soft, non-tender, nondistended. Normoactive bowel sounds x4. : blair catheter in place draining to gravity MUSCULOSKELETAL: No obvious deformities. Extremities without clubbing, cyanosis , or edema. NEUROLOGICAL: Awake and alert. No obvious cranial nerve deficits. Moving all extremities spontaneously. PSYCHIATRIC: limited insight and judgement. Urinary Catheter Management Indwelling Urethral Catheter: Cath placed during this visit: yes Urethral indwelling: Yes Reason for continuing: Hourly intake/output Insertion date: 04/26/18 Insertion time: 13:25 Results Labs CBC & Chem 7: 04/28/18 04:40 04/29/18 03:30 Assessment and Plan (1) Altered mental status: Code(s): R41.82 - Altered mental status, unspecified Status: Acute (2) Atrial fib/flutter, transient: Status: Acute Plan Mr. Guerrero is a 77 year-old male with a possible history of lymphoma who presented to the ER on 04/22/2018 escorted by the police under [place] Act for evaluation after he was found disoriented and wandering around a neighborhood in [place] with urine soaked pants looking for his son. He can seem very oriented at times but fails to be able to provide any specific details about himself and he is a very difficult and poor historian. Atrial fibrillation with RVR Patient was evaluated by cardiology, continuing metoprolol 25 mg twice daily Echocardiogram shows ejection fraction 25-30% Single dose of digoxin given this morning for persisting tachycardia Appreciate cardiology consult Acute urinary retention Ultrasound of abdomen/pelvis showed prostatic hypertrophy Urology recommends voiding trial tomorrow Hematuria resolved AK I resolved Continue Flomax Appreciate urology consult Urinary tract infection urine cx providencia rettgeri and proteus mirabilis both sensitive to Ceftriaxone Continuing ceftriaxone IV Unsafe discharge Head CT shows atrophy and white matter disease Neuopsych consulted, patient does not have cognitive capacity DVT Prophylaxis Heparin Discharge planning Patient accepted at [facility], discharge pending resolution of A. fib with RVR MDM: tiana Puckett can be contacted at [phone] Progress Note: Quality VTE Deep Vein Thrombosis/Pulmonary Embolism Present on Admission: No _ (1) Altered mental status Qualifiers: Altered mental status type: unspecified Coma depth: Coma timing: Qualified Code(s): R41.82 - Altered mental status, unspecified
[2018-05-01] MEDS: Metoprolol Tartrate 25 MG Tablet PO SCH ×2 (09:23→22:14)
[2018-05-01] MEDS: Aspirin 325 MG Tablet PO SCH (09:23)
[2018-05-01] MEDS: Lisinopril 5 MG Tablet PO SCH (09:23)
--- NOTE | 2018-05-01 11:45 | P.PNURO ---
Subjective Patient symptoms today: Pt seen and examined. Feels well. Objective Vital Signs: Vital Signs 04/30/18 11:46 04/30/18 16:00 04/30/18 19:51 Temperature 97.4 F L 97.7 F Pulse Rate 66 67 99 H Respiratory Rate 17 17 Blood Pressure 98/60 L 88/56 L Pulse Oximetry 99 100 04/30/18 20:00 05/01/18 00:00 05/01/18 04:00 Temperature 97.8 F 98 F 97.7 F Pulse Rate 92 H 65 64 Respiratory Rate 22 22 20 Blood Pressure 123/85 99/56 L 130/77 Pulse Oximetry 97 98 100 05/01/18 08:00 Temperature 97.8 F Pulse Rate 69 Respiratory Rate 19 Blood Pressure 111/75 Pulse Oximetry 19 L Intake & Output 04/30/18 05/01/18 05/01/18 18:59 06:59 18:59 Intake Total 100 / 100 240 / 240 100 / 100 Output Total 800 / 800 1250 / 1250 Balance -700 / -700 -1010 / -1010 100 / 100 Weight 64 kg Intake: IV 100 / 100 100 / 100 Rocephin Inj 1,000 MG In NS Inj 100 / 100 100 / 100 100 ML @ 200 mls/hr IV.SIG Q24H [facility] Rx#:[id number] Oral 240 / 240 Output: Urine Amount (Catheter) 800 / 800 1250 / 1250 Indwelling Urethral Catheter 800 / 800 1250 / 1250 Other: # Bowel Movements 1 1 Result Diagrams: 04/28/18 04:40 04/29/18 03:30 Medications and IVs: Active Medications Generic Name Dose Route Start Last Admin Trade Name Aniketq PRN Reason Stop Dose Admin Aspirin 81 mg 04/28/18 14:09 05/01/18 09:23 Aspirin PO 81 mg DAILY [facility] Administration Ceftriaxone Sodium 1,000 mg/ 100 mls @ 200 mls/hr 04/27/18 08:00 05/01/18 11: 19 Sodium Chloride IV.SIG Infused Q24H [facility] Infusion Lisinopril 5 mg 04/26/18 09:00 05/01/18 09:23 Prinivil PO 5 mg DAILY [facility] Administration Metoprolol Tartrate 25 mg 04/25/18 09:00 05/01/18 09:23 Lopressor PO 25 mg BID [facility] Administration Ondansetron HCl 4 mg 04/26/18 12:00 04/26/18 12:16 Zofran Inj IV.PUSH 4 mg Q6H PRN Administration NAUSEA Pantoprazole Sodium 40 mg 04/26/18 15:15 05/01/18 09:23 Protonix PO 40 mg DAILY [facility] Administration Tamsulosin HCl 0.4 mg 04/26/18 21:00 05/01/18 09:23 Flomax PO 0.4 mg DAILY [facility] Administration Objective Remarks: Abd:soft,nt,nd Blair: urine clear 04/28 Abd:soft,nt,nd Blair: urine clear 04/29 Abd:soft,nt,nd Blair: urine clear 04/30 Abd:soft,nt,nd Blair: urine clear 05/01 Abd:soft,nt,nd Blair out; voided x 1. Assessment and Plan - Plan 77 y.o male with ARF with BPH with obstruction and hematuria after blair insertion Maintain blair as ARF is improving. Creatinine down to 1.5 from 3 Continue Flomax Void trial in the next few days 04/28 77 y.o male with ARF with BPH with obstruction and hematuria after blair insertion Maintain blair as ARF is improving. Continue Flomax Void trial in the next few days 04/29 77 y.o male with ARF with BPH with obstruction and hematuria after blair insertion Maintain blair as ARF is improving. Continue Flomax Void trial in the next few days 04/30 77 y.o male with ARF with BPH with obstruction and hematuria after blair insertion Continue Flomax Void trial in AM 05/01 77 y.o male with ARF with BPH with obstruction and hematuria after blair insertion Continue Flomax Void trial today.
--- NOTE | 2018-05-01 12:35 | P.PNIM ---
Subjective Interval history: 77-year-old male who is a bit upset today because he did not yet received breakfast. He is pleased however to learn that his heart rate has returned to normal sinus rhythm. He has no complaints outside of wanting his breakfast. Physical Exam Vital signs: Last Vital Signs Temp 97.8 F 05/01/18 08:00 Pulse 69 05/01/18 08:00 Resp 19 05/01/18 08:00 BP 111/75 05/01/18 08:00 Pulse Ox 19 L 05/01/18 08:00 Intake & Output 04/29/18 04/30/18 05/01/18 05/02/18 06:59 06:59 06:59 06:59 Intake Total 340 / 340 1060 / 1060 340 / 340 100 / 100 Output Total 2600 / 2600 2575 / 2575 2049 / 2049 Balance -2260 / -2260 -1515 / -1515 -1710 / -1710 100 / 100 Weight 64 kg 64 kg Narrative: GENERAL: Tall thin unkempt appearing elderly male patient in [facility]. SKIN: Warm and dry. No rash. HEENT: Normocephalic. Atraumatic. Pupils equal and round. Mucous membranes pink and moist. CARDIOVASCULAR: Regular rate and rhythm. No murmur appreciated. RESPIRATORY: No accessory muscle use. Clear to auscultation. Breath sounds equal bilaterally. GASTROINTESTINAL: Abdomen soft, non-tender, nondistended. Normoactive bowel sounds x4. : blair catheter in place draining to gravity MUSCULOSKELETAL: No obvious deformities. Extremities without clubbing, cyanosis , or edema. NEUROLOGICAL: Awake and alert. No obvious cranial nerve deficits. Moving all extremities spontaneously. PSYCHIATRIC: limited insight and judgement. Urinary Catheter Management Indwelling Urethral Catheter: Cath placed during this visit: yes, but has since been removed by the nurse Urethral indwelling: Yes Insertion date: 04/26/18 Insertion time: 13:25 Removal date: 05/01/18 Removal time: 06:10 Results Labs CBC & Chem 7: 04/28/18 04:40 04/29/18 03:30 Assessment and Plan (1) Altered mental status: Code(s): R41.82 - Altered mental status, unspecified Status: Acute (2) Atrial fib/flutter, transient: Status: Acute Plan Mr. Guerrero is a 77 year-old male with a possible history of lymphoma who presented to the ER on 04/22/2018 escorted by the police under [employer] Act for evaluation after he was found disoriented and wandering around a neighborhood in [place] with urine soaked pants looking for his son. He can seem very oriented at times but fails to be able to provide any specific details about himself and he is a very difficult and poor historian. Atrial fibrillation with RVR Converted to normal sinus rhythm Continue metoprolol twice daily Echocardiogram shows ejection fraction 25-30% Digoxin seemed helpful with conversion Appreciate cardiology consult Acute urinary retention Ultrasound of abdomen/pelvis showed prostatic hypertrophy Urology recommends voiding trial tomorrow Hematuria resolved SHERITA resolved Continue Flomax Appreciate urology consult Urinary tract infection urine cx providencia rettgeri and proteus mirabilis both sensitive to Ceftriaxone Continuing ceftriaxone IV Unsafe discharge Head CT shows atrophy and white matter disease Neuopsych consulted, patient does not have cognitive capacity DVT Prophylaxis Heparin Discharge planning Patient accepted at [facility], discharge planned for Saturday MDM: tiana Puckett can be contacted at [phone] Progress Note: Quality VTE Deep Vein Thrombosis/Pulmonary Embolism Present on Admission: No _ (1) Altered mental status Qualifiers: Altered mental status type: unspecified Coma depth: Coma timing: Qualified Code(s): R41.82 - Altered mental status, unspecified
--- NOTE | 2018-05-01 16:09 | P.PNCA ---
Subjective Interval history: No CP or SOB, mildly confused Medications and Allergies Active Medications: Active Medications Aspirin (Aspirin) 81 mg PO DAILY [facility] Last Admin: 05/01/18 09:23 Dose: 81 mg Ceftriaxone Sodium 1,000 mg/ (Sodium Chloride) 100 mls @ 200 mls/hr IV.SIG Q24H [facility] Last Infusion: 05/01/18 11:19 Dose: Infused Lisinopril (Prinivil) 5 mg PO DAILY [facility] Last Admin: 05/01/18 09:23 Dose: 5 mg Metoprolol Tartrate (Lopressor) 25 mg PO BID [facility] Last Admin: 05/01/18 09:23 Dose: 25 mg Ondansetron HCl (Zofran Inj) 4 mg IV.PUSH Q6H PRN PRN Reason: NAUSEA Last Admin: 05/01/18 13:27 Dose: 4 mg Pantoprazole Sodium (Protonix) 40 mg PO DAILY [facility] Last Admin: 05/01/18 09:23 Dose: 40 mg Tamsulosin HCl (Flomax) 0.4 mg PO DAILY [facility] Last Admin: 05/01/18 09:23 Dose: 0.4 mg Allergies Allergy/AdvReac Type Severity Reaction Status Date / Time No Known Allergies Allergy Verified 04/21/18 14:50 Home Medications Medication Instructions Recorded Confirmed Type Unable to Obtain Home Meds 04/21/18 04/21/18 History Physical Exam Vital signs: Vital Signs 04/30/18 19:51 04/30/18 20:00 05/01/18 00:00 Temperature 97.8 F 98 F Pulse Rate 99 H 92 H 65 Respiratory Rate 22 22 Blood Pressure 123/85 99/56 L Pulse Oximetry 97 98 05/01/18 04:00 05/01/18 08:00 05/01/18 12:00 Temperature 97.7 F 97.8 F 97.5 F L Pulse Rate 64 69 70 Respiratory Rate 20 19 19 Blood Pressure 130/77 111/75 112/61 Pulse Oximetry 100 19 L 100 Intake & Output 04/30/18 05/01/18 05/01/18 18:59 06:59 18:59 Intake Total 100 / 100 240 / 240 100 / 100 Output Total 800 / 800 1250 / 1250 Balance -700 / -700 -1010 / -1010 100 / 100 Weight 141 lb 1.533 oz Intake: IV 100 / 100 100 / 100 Rocephin Inj 1,000 MG In NS Inj 100 / 100 100 / 100 100 ML @ 200 mls/hr IV.SIG Q24H [facility] Rx#:[id number] Oral 240 / 240 Output: Urine Amount (Catheter) 800 / 800 1250 / 1250 Indwelling Urethral Catheter 800 / 800 1250 / 1250 Other: Date of Last Bowel Movement 05/01/18 # Bowel Movements 1 1 Narrative: GENERAL: In NAD. SKIN: Warm and dry. CARDIOVASCULAR: Irregular. No murmur appreciated. RESPIRATORY: No accessory muscle use. Clear to auscultation. GASTROINTESTINAL: Abdomen soft, non-tender, nondistended. MUSCULOSKELETAL: Extremities without clubbing, cyanosis, or edema. NEUROLOGICAL: Grossly nonfocal. - Urinary Catheter Management Indwelling Urethral Catheter Cath placed during this visit: yes, but has since been removed by the nurse Urethral indwelling: Yes Reason for continuing: Decision to DC catheter Insertion date: 04/26/18 Insertion time: 13:25 Removal date: 05/01/18 Removal time: 06:10 Results 04/28/18 04:40 04/29/18 03:30 Intake and Output 05/01/18 05/01/18 05/01/18 06:59 14:59 22:59 Intake Total 240 / 240 100 / 100 Output Total 1250 / 1250 Balance -1010 / -1010 100 / 100 Intake: IV 100 / 100 Rocephin Inj 1,000 MG In NS Inj 100 / 100 100 ML @ 200 mls/hr IV.SIG Q24H [facility] Rx#:[id number] Oral 240 / 240 Output: Urine Amount (Catheter) 1250 / 1250 Indwelling Urethral Catheter 1250 / 1250 Other: Date of Last Bowel Movement 05/01/18 # Bowel Movements 1 Weight 141 lb 1.533 oz Assessment and Plan - Assessment (1) Altered mental status Code(s): R41.82 - Altered mental status, unspecified Status: Acute (2) Atrial fib/flutter, transient Status: Acute - Plan Continue rate control for a fib. We will continue current treatment with baby ASA for anticoagulation. Patient continues to have AMS, neurology evaluation in progress. No recurrent hematuria. There have been no new cardiac issues noted, we will continue with current cardiac treatment plan We will continue to monitor the patient during his hospitalization. (1) Altered mental status Qualifiers: Altered mental status type: unspecified Qualified Code(s): R41.82 - Altered mental status, unspecified
[2018-05-01 22:56] LABS: Bacteria,Urine Rare /hpf; Bilirubin,Urine Negative (Negative); Clarity,Urine Hazy (Clear); Color,Urine Red (Yellw/Straw); Glucose,Urine (UA) Negative (Negative); Leukocyte Esterase,Urine Negative (Negative); Nitrite,Urine Negative (Negative); Specific Gravity,Urine 1.009 (1.002-1.035)
[2018-05-02] MEDS: Aspirin 325 MG Tablet PO SCH (08:39)
[2018-05-02] MEDS: Lisinopril 5 MG Tablet PO SCH (08:40)
[2018-05-02] MEDS: Metoprolol Tartrate 25 MG Tablet PO SCH (08:40)
--- NOTE | 2018-05-02 11:00 | P.PNIM ---
Subjective Interval history: 77-year-old male who was admitted for urinary retention complicated by atrial fibrillation with RVR which resolved with simple therapy of metoprolol and single dose of digoxin. His Romero was removed couple days ago and nursing reports that over the last 24 hours he has had a difficult time voiding. He had onset of nausea and vomiting with some abdominal pain yesterday , urine culture sent and initial result was positive. His antibiotics are now changed from Rocephin to Levaquin. Compazine was added to address nausea, patient is more comfortable but still not feeling well. His heart rhythm remains normal sinus. Physical Exam Vital signs: Last Vital Signs Temp 97.9 F 05/02/18 08:00 Pulse 108 H 05/02/18 08:00 Resp 18 05/02/18 08:00 BP 141/89 H 05/02/18 08:00 Pulse Ox 95 05/02/18 08:00 Intake & Output 04/30/18 05/01/18 05/02/18 05/03/18 06:59 06:59 06:59 06:59 Intake Total 1060 / 1060 340 / 340 1300 / 1300 Output Total 2575 / 2575 0 / 2050 1200 / 1200 Balance -1515 / -1515 -1710 / -1710 100 / 100 Weight 64 kg 64 kg 60.1 kg Narrative: GENERAL: AAOx3, no acute distress, sick appearing, tired SKIN: Warm and dry. No rashes HEAD: Atruamtic, normocephalic. EYES: No scleral icterus. No injection or drainage. ENT: Moist mucous membranes, patent nares, no erythema of oropharynx. NECK: Supple, trachea midline. No JVD or lymphadenopathy. Normal thyroid. CARDIOVASCULAR: Regular rate and rhythm. No murmurs, gallops, or rubs. RESPIRATORY: Breath sounds clear equal bilaterally. No crackles or wheezes. No accessory muscle use. GASTROINTESTINAL: Abdomen soft, non-tender, nondistended, normal active bowel sounds MUSCULOSKELETAL: No cyanosis, or edema. NEURO: CN II-XII grossly intact, no focal deficits, no slurring of speech Urinary Catheter Management Indwelling Urethral Catheter: Cath placed during this visit: yes, but has since been removed by the nurse Urethral indwelling: Yes Insertion date: 04/26/18 Insertion time: 13:25 Removal date: 05/01/18 Removal time: 06:10 Straight: Cath placed during this visit: yes, but has since been removed by the nurse Insertion date: 05/01/18 Insertion time: 21:33 Removal date: 05/01/18 Removal time: 21:50 Results Labs CBC & Chem 7: 04/28/18 04:40 04/29/18 03:30 Assessment and Plan (1) Altered mental status: Code(s): R41.82 - Altered mental status, unspecified Status: Acute (2) Atrial fib/flutter, transient: Status: Acute Plan Mr. Guerrero is a 77 year-old male with a possible history of lymphoma who presented to the ER on 04/22/2018 escorted by the police under [place] Act for evaluation after he was found disoriented and wandering around a neighborhood in [place] with urine soaked pants looking for his son. He can seem very oriented at times but fails to be able to provide any specific details about himself and he is a very difficult and poor historian. Atrial fibrillation with RVR Converted to normal sinus rhythm Continue metoprolol twice daily Echocardiogram shows ejection fraction 25-30% Digoxin seemed helpful with conversion Appreciate cardiology consult Urinary tract infection Symptoms of UTI combined with positive UTI on urine dip in the presence of Rocephin Discontinue Rocephin and started Levaquin Previously grew out procidentia and Proteus, both sensitive to Rocephin Follow new cultures, discharge held Acute urinary retention Ultrasound of abdomen/pelvis showed prostatic hypertrophy Patient has thus far failed his voiding trials, it may be necessary to replace catheter Hematuria which was resolved has now returned AK I was resolved, checking labs today Continue Flomax Appreciate urology consult Unsafe discharge Head CT shows atrophy and white matter disease Neuopsych consulted, patient does not have cognitive capacity DVT Prophylaxis Heparin Discharge planning Patient accepted at [facility], discharge held due to new symptomatic urinary tract infection MDM: son Italo can be contacted at [phone] Progress Note: Quality VTE Deep Vein Thrombosis/Pulmonary Embolism Present on Admission: No _ (1) Altered mental status Qualifiers: Altered mental status type: unspecified Coma depth: Coma timing: Qualified Code(s): R41.82 - Altered mental status, unspecified
--- NOTE | 2018-05-02 12:08 | P.PNCA ---
Subjective Interval history: Patient denies any CP, pressure, palpitations, dizziness, edema or SOB. Patient states that he feels fine. Medications and Allergies Allergies Allergy/AdvReac Type Severity Reaction Status Date / Time No Known Allergies Allergy Verified 04/21/18 14:50 Home Medications Medication Instructions Recorded Confirmed Type Unable to Obtain Home Meds 04/21/18 04/21/18 History Active Medications: Active Medications Aspirin (Aspirin) 81 mg PO DAILY [facility] Last Admin: 05/02/18 08:39 Dose: 81 mg Levofloxacin/Dextrose (Levaquin 750 Mg Premix Inj) 150 mls @ 100 mls/hr IV.SIG Q24H [facility] Lisinopril (Prinivil) 5 mg PO DAILY [facility] Last Admin: 05/02/18 08:40 Dose: 5 mg Metoprolol Tartrate (Lopressor) 25 mg PO BID [facility] Last Admin: 05/02/18 08:40 Dose: 25 mg Ondansetron HCl (Zofran Inj) 4 mg IV.PUSH Q6H PRN PRN Reason: NAUSEA Last Admin: 05/02/18 04:44 Dose: 4 mg Pantoprazole Sodium (Protonix) 40 mg PO DAILY [facility] Last Admin: 05/02/18 08:39 Dose: 40 mg Prochlorperazine Edisylate (Compazine Inj) 10 mg IV.PUSH Q6H PRN PRN Reason: NAUSEA OR VOMITING Last Admin: 05/01/18 18:20 Dose: 10 mg Tamsulosin HCl (Flomax) 0.4 mg PO DAILY [facility] Last Admin: 05/02/18 08:39 Dose: 0.4 mg Physical Exam Vital signs: Vital Signs 05/01/18 16:00 05/01/18 20:00 05/01/18 21:30 Temperature 97.3 F L 96.2 F L Pulse Rate 70 82 108 H Respiratory Rate 19 19 Blood Pressure 110/77 133/80 Pulse Oximetry 100 99 05/02/18 04:00 05/02/18 08:00 Temperature 98 F 97.9 F Pulse Rate 92 H 108 H Respiratory Rate 17 18 Blood Pressure 136/92 H 141/89 H Pulse Oximetry 99 95 Intake & Output 05/01/18 05/02/18 05/02/18 18:59 06:59 18:59 Intake Total 1060 / 1060 240 / 240 100 / 100 Output Total 300 / 300 900 / 900 Balance 760 / 760 -660 / -660 100 / 100 Weight 60.1 kg Intake: IV 100 / 100 100 / 100 Rocephin Inj 1,000 MG In NS Inj 100 / 100 100 / 100 100 ML @ 200 mls/hr IV.SIG Q24H [facility] Rx#:[id number] Oral 960 / 960 240 / 240 Output: Urine Amount (Catheter) 300 / 300 900 / 900 Straight 300 / 300 900 / 900 Other: Date of Last Bowel Movement 05/01/18 # Bowel Movements 4 # Emeses 3 - Constitutional no acute distress - Routine HEENT Exam Head: Present: normocephalic Eye: Present: PERRL ENT: Present: mucous membranes moist - Routine Neck Exam Present: lymphadenopathy - Routine Respiratory Exam Present: CTA bilaterally - Routine Cardiovascular Exam Present: S1, irregular rhythm - Routine Abdominal Exam Present: normoactive bowel sounds - Routine Extremities Exam Present: full ROM, pulses intact, normal capillary refill. Absent: cyanosis, clubbing, edema - Routine Skin Exam Present: intact, scars - Routine Neurological Exam Present: alert - Detailed Neurological Exam: Coma Scale Eye Opening: Spontaneous Verbal Response: Confused Motor Response: Obey commands [place] Coma Scale Total: 14 - Routine Psychiatric Exam Present: normal affect - Urinary Catheter Management Indwelling Urethral Catheter Cath placed during this visit: yes, but has since been removed by the nurse Urethral indwelling: Yes Reason for continuing: Not indwelling catheter Insertion date: 04/26/18 Insertion time: 13:25 Removal date: 05/01/18 Removal time: 06:10 Straight Cath placed during this visit: yes, but has since been removed by the nurse Reason for continuing: Acute urinary retention Insertion date: 05/01/18 Insertion time: 21:33 Removal date: 05/01/18 Removal time: 21:50 Results 05/02/18 12:20 05/02/18 12:20 Intake and Output 05/01/18 05/02/18 05/02/18 22:59 06:59 14:59 Intake Total 960 / 960 240 / 240 100 / 100 Output Total 1200 / 1200 Balance -240 / -240 240 / 240 100 / 100 Intake: IV 100 / 100 Rocephin Inj 1,000 MG In NS Inj 100 / 100 100 ML @ 200 mls/hr IV.SIG Q24H [facility] Rx#:[id number] Oral 960 / 960 240 / 240 Output: Urine Amount (Catheter) 1200 / 1200 Straight 1200 / 1200 Other: # Bowel Movements 4 # Emeses 3 Weight 60.1 kg Assessment and Plan - Assessment (1) Atrial fib/flutter, transient Status: Acute (2) Altered mental status Code(s): R41.82 - Altered mental status, unspecified Status: Acute (3) CHF (congestive heart failure) Code(s): I50.9 - Heart failure, unspecified Status: Acute (4) Cardiomyopathy Code(s): I42.9 - Cardiomyopathy, unspecified Status: Acute - Plan There have been no new cardiac issues noted at this time, we will continue with current cardiac treatment plan. Patient remains in atrial fibrillation, we will continue and titrate rate control. Neurology evaluation in progress due to patient's continuing AMS. There have been no signs of active bleeding, we will continue with baby ASA for anticoagulation. Increase activity, PT. We will continue to monitor patient during his hospitalization. The patient was seen by Dr. Naidu who participated in care, management and decision making. - Attending Attestation Patient seen and examined. I reviewed and agreed with the evaluation and plan as presented. Continue a fib rate control and anticoagulation with ASA. Continue tx for CHF. Increase activity, PT. (2) Altered mental status Qualifiers: Altered mental status type: unspecified Qualified Code(s): R41.82 - Altered mental status, unspecified
[2018-05-02 12:57] LABS: Baso % (Auto) 0.1 % (0.0-2.0); Eos % (Auto) 0.1 % (0.0-4.0); Hematocrit 45.9 % (39.0-51.0); Lymph # (Auto) 0.6 th/mm3 (1.0-4.8); Lymph % (Auto) 3.9 % (9.0-44.0); Mean Corpuscular HGB Conc 34.9 % (32.0-36.0); Mean Corpuscular Hemoglobin 35.3 pg (27.0-34.0); Mean Platelet Volume 7.9 fL (7.0-11.0); Mono % (Auto) 6.7 % (0.0-8.0); Neut # (Auto) 12.8 th/mm3 (1.8-7.7); Neut % (Auto) 89.2 % (16.0-70.0); Platelet Count 228 th/mm3 (150-450); Red Blood Count 4.55 mil/mm3 (4.50-5.90); Red Cell Distribution Width 14.2 % (11.6-17.2); White Blood Count 14.3 th/mm3 (4.0-11.0)
[2018-05-02 13:27] LABS: Calcium 8.8 mg/dL (8.5-10.1); Carbon Dioxide 27.2 meq/L (21.0-32.0); Potassium 5.2 meq/L (3.5-5.1)
[2018-05-02] MEDS: Metoprolol Tartrate 50 MG Tablet PO SCH ×2 (19:24→20:05)
[2018-05-03] MEDS ORDERED: Sodium Chlor 0.9% Inj 500 ML IV.SIG ONE (04:08)
[2018-05-03] MEDS: Lisinopril 5 MG Tablet PO SCH (09:48)
[2018-05-03] MEDS: Aspirin 325 MG Tablet PO SCH (09:49)
[2018-05-03] MEDS: Metoprolol Tartrate 50 MG Tablet PO SCH ×2 (09:51→20:39)
[2018-05-03 10:08] LABS: Baso % (Auto) 0.4 % (0.0-2.0); Eos # (Auto) 0.1 th/mm3 (0.0-0.4); Eos % (Auto) 0.8 % (0.0-4.0); Hemoglobin 14.2 gm/dL (13.0-17.0); Lymph # (Auto) 0.8 th/mm3 (1.0-4.8); Lymph % (Auto) 8.9 % (9.0-44.0); Mean Corpuscular HGB Conc 35.4 % (32.0-36.0); Mean Corpuscular Hemoglobin 35.8 pg (27.0-34.0); Mean Corpuscular Volume 101.1 fL (80.0-100.0); Mean Platelet Volume 7.9 fL (7.0-11.0); Mono # (Auto) 0.6 th/mm3 (0.0-0.9); Mono % (Auto) 6.6 % (0.0-8.0); Neut # (Auto) 7.3 th/mm3 (1.8-7.7); Neut % (Auto) 83.3 % (16.0-70.0); Platelet Count 192 th/mm3 (150-450); Red Blood Count 3.96 mil/mm3 (4.50-5.90); White Blood Count 8.7 th/mm3 (4.0-11.0)
[2018-05-03 11:28] LABS: Calcium 8.5 mg/dL (8.5-10.1); Carbon Dioxide 25.6 meq/L (21.0-32.0); Potassium 4.5 meq/L (3.5-5.1)
--- NOTE | 2018-05-03 17:36 | P.PNIM ---
Subjective Interval history: Nursing denies any acute changes overnight. Patient self says he feels okay. Denies any pain issues, denies nausea vomiting or abdominal pain. Physical Exam Vital signs: Vital Signs 05/02/18 20:00 05/03/18 00:00 05/03/18 04:00 Temperature 97.3 F L 97.6 F 97.3 F L Pulse Rate 45 L 68 68 Respiratory Rate 22 20 20 Blood Pressure 104/55 L 96/55 L 89/59 L Pulse Oximetry 100 97 97 05/03/18 05:44 05/03/18 08:00 05/03/18 12:00 Temperature 98.1 F 97.6 F Pulse Rate 67 69 89 Respiratory Rate 15 16 Blood Pressure 99/57 L 93/51 L 95/53 L Pulse Oximetry 99 98 Intake & Output 05/02/18 05/03/18 05/03/18 18:59 06:59 18:59 Intake Total 250 / 250 500 / 500 Output Total 1750 / 1750 Balance 250 / 250 -1250 / -1250 Weight 60.1 kg Intake: IV 250 / 250 500 / 500 Levaquin 750 mg Premix Inj 150 150 / 150 ML @ 100 mls/hr IV[facility]SIG Q[facility]H [facility] Rx#:[id number] NS Inj 500 ML @ Wide Open IV. 500 / 500 SIG BOLUS ONE Rx#:[id number] Rocephin Inj 1,000 MG In NS Inj 100 / 100 100 ML @ 200 mls/hr IV.SIG Q24H [facility] Rx#:[id number] Output: Urine Amount (Catheter) 1750 / 1750 Indwelling Urethral Catheter 1750 / 1750 Other: Date of Last Bowel Movement 05/02/18 Narrative: Abdomen soft, nontender, nondistended, benign, positive bowel sounds Clear lungs bilaterally, unlabored breathing Heart sounds regular rate and rhythm No lower extremity edema Romero catheter in place - Urinary Catheter Management Indwelling Urethral Catheter Cath placed during this visit: yes, but has since been removed by the nurse Urethral indwelling: Yes Reason for continuing: Chronic Urinary Retention Insertion date: 05/02/18 Insertion time: 13:25 Removal date: 05/01/18 Removal time: 06:10 Straight Cath placed during this visit: yes, but has since been removed by the nurse Reason for continuing: Acute urinary retention Insertion date: 05/02/18 Insertion time: 19:17 Removal date: 05/01/18 Removal time: 21:50 Results - Labs CBC & Chem 7: 05/03/18 09:00 05/04/18 11:39 Laboratory Results - last 24 hr 05/03/18 05/03/18 09:00 10:40 WBC 8.7 RBC 3.96 L Hgb 14.2 Hct 40.0 MCV 101.1 H MCH 35.8 H MCHC 35.4 RDW 14.0 Plt Count 192 MPV 7.9 Neut % (Auto) 83.3 H Lymph % (Auto) 8.9 L [place] % (Auto) 6.6 Eos % (Auto) 0.8 Baso % (Auto) 0.4 Neut # (Auto) 7.3 Lymph # (Auto) 0.8 L [place] # (Auto) 0.6 Eos # (Auto) 0.1 Baso # (Auto) 0.0 WBC Differential . Differential Comment Auto diff final Sodium 140 Potassium 4.5 Chloride 106 Carbon Dioxide 25.6 Anion Gap 8 BUN 39 H Creatinine 1.52 H Estimated GFR 45 L Random Glucose 99 Calcium 8.5 Microbiology 05/01/18 22:15 Clean Catch Urine Urine Culture - Preliminary No growth in 24 hours Assessment and Plan - Assessment (1) Altered mental status Code(s): R41.82 - Altered mental status, unspecified Status: Acute (2) Atrial fib/flutter, transient Status: Acute - Plan Mr. Guerrero is a 77 year-old male with a possible history of lymphoma who presented to the ER on 04/22/2018 escorted by the police under [employer] Act for evaluation after he was found disoriented and wandering around a neighborhood in [place] with urine soaked pants looking for his son. He can seem very oriented at times but fails to be able to provide any specific details about himself and he is a very difficult and poor historian. Had been converted from A. fib with RVR to normal sinus rhythm with digoxin and metoprolol. Chronic systolic CHF Atrial fibrillation -Converted to normal sinus rhythm -Continue digoxin and metoprolol Procidentia and Proteus UTI -Repeat cultures pending, continue Levaquin for now Acute urinary retention BPH Appreciate urology input Continue Flomax, maintain catheter, failed voiding trial, will need voiding trial outpatient urology clinic Unsafe discharge -Head CT shows atrophy and white matter disease -Neuopsych consulted, patient does not have cognitive capacity DVT Prophylaxis -Heparin Discharge planning Patient accepted at [facility], pending [facility]. (1) Altered mental status Qualifiers: Altered mental status type: unspecified Qualified Code(s): R41.82 - Altered mental status, unspecified
[2018-05-04] MEDS: Aspirin 325 MG Tablet PO SCH (08:03)
[2018-05-04] MEDS: Metoprolol Tartrate 50 MG Tablet PO SCH (08:04)
[2018-05-04 08:06] VITALS: BP 120/75; RESP 14; TEMP 97.2; O2SAT 100
[2018-05-04 09:25] VITALS: PULSE 67
[2018-05-04 12:23] LABS: Calcium 8.6 mg/dL (8.5-10.1); Carbon Dioxide 28.4 meq/L (21.0-32.0); Potassium 4.5 meq/L (3.5-5.1)
--- NOTE | 2018-05-04 14:39 | P.DS ---
Date of admission: 04/29/18 16:39 Primary care physician: No Primary Care Physician Brief History from admission: Mr. Guerrero is a 77 year-old male with a possible history of lymphoma who presented to the ER on 04/22/2018 escorted by the police under [place] Act for evaluation after he was found disoriented and wandering around a neighborhood in [place] with urine soaked pants looking for his son. He was evaluated by the psychiatric [employer] for psychiatry and she lifted the Batista Act following her evaluation. The patient is being kept here pending placement after the patient's family refused to pick him up from the hospital [facility]. He is unable to provide me with any specific medical information. He does acknowledge being diagnosed with lymphoma but he is tangential when discussing this and is unable to tell me any of the treatment he had for it or the names of any doctors he saw for it. He denies taking any medications. He can seem very oriented at times but fails to be able to provide any specific details about himself and he is a very difficult and poor historian. DS: Diagnosis - Discharge Diagnosis (1) Altered mental status Status: Acute (2) Atrial fib/flutter, transient Status: Acute DS: Medications - Discharge Medications Prescriptions: carvedilol 6.25 mg PO BID #60 tab lisinopril 2.5 mg PO DAILY #30 tab DS: Summary Hospital Course: Patient was admitted with altered mental status, had to have Romero catheter placed for acute urinary retention. Was covered with antibiotics, grew out preferentially Proteus UTI, repeat cultures were negative. Patient mental status returned to baseline. Patient also had some A. fib with RVR which converted to sinus rhythm with rate control, cardiology recommended aspirin given to the patient's risk of falling. Patient did have some transient nausea vomiting abdominal pain as well as acute kidney injury which self resolved. Tolerating p.o. intake. Patient has met maximal benefit from hospitalization and is clinically stable for discharge. Given that the patient has a history of systolic CHF with recovering renal function, the patient's lisinopril dose was reduced to 2.5 mg and he was switched over from metoprolol tartrate to Coreg. Patient also failed voiding trials in the hospital, had Romero catheter placed with leg bag and is to have a voiding trial in the outpatient office with urology. Patient has met maximal benefit from hospitalization is clinically stable for discharge. He will need close follow-up on his renal function and his blood pressure to have his medications adjusted as warranted. - Time Spent with Patient Total time spent providing and/or coordinating discharge services: Less than 30 minutes - Quality: VTE Deep Vein Thrombosis/Pulmonary Embolism Present on Admission: No Exam Vital signs: Vital Signs 05/03/18 16:00 05/03/18 20:00 05/03/18 23:56 Temperature 97.8 F 97.6 F Pulse Rate 98 H 92 H 94 H Respiratory Rate 15 18 Blood Pressure 82/52 L 94/52 L Pulse Oximetry 98 99 05/04/18 00:00 05/04/18 03:59 05/04/18 04:00 Temperature 97.9 F 97.9 F Pulse Rate 48 L 104 H 53 L Respiratory Rate 18 16 Blood Pressure 107/49 L 91/54 L Pulse Oximetry 99 94 L 05/04/18 08:00 Temperature 97.2 F L Pulse Rate 67 Respiratory Rate 14 Blood Pressure 120/75 Pulse Oximetry 100 Intake & Output 05/03/18 05/04/18 05/04/18 18:59 06:59 18:59 Intake Total 360 / 360 Output Total 1200 / 1200 600 / 600 Balance -1200 / -1200 -240 / -240 Intake: Oral 360 / 360 Output: Urine 1200 / 1200 600 / 600 Other: Date of Last Bowel Movement 05/02/18 # Bowel Movements 1 Narrative: Clear lungs bilaterally, unlabored breathing Heart sounds regular rate and rhythm, no murmurs Abdomen soft, nontender No lower extremity edema Awake and alert, oriented x3, pleasant demeanor Results Labs on day of discharge: Labs from last 24 hours 05/04/18 11:39 Sodium 140 Potassium 4.5 Chloride 107 Carbon Dioxide 28.4 Anion Gap 5 BUN 39 H Creatinine 1.41 H Estimated GFR 49 L Random Glucose 72 L Calcium 8.6 - Impressions ITS Impressions Chest X-Ray 04/21/18 14:50 CONCLUSION: No acute cardiopulmonary disease. There is no evidence of pneumonia. Head CT 04/21/18 14:50 CONCLUSION: 1. Atrophy and white matter disease. . Abdomen/Bladder Ultrasound 04/26/18 00:00 CONCLUSION: 1. Significant prostatic hypertrophy. The bladder is decompressed. 2. Bilateral simple appearing renal cysts. No evidence of concerning renal mass or hydronephrosis. Discharge Plan - Discharge Disposition Patient Disposition: 03 Discharge to SNF - Discharge Condition Condition: Stable - Discharge Order Discharge Orders: Discharge Order (Routine); Ordered 05/04/18 Ordered By: Neftaly Whitehead - Discharge Details Anticipated Discharge Date: 04/24/18 Discharge Comment: DC once lab returns. Arrange for tras - Physicians Team Primary Care Provider: Primary Care Selma Fregoso Attending Provider: Neftaly Whitehead Other Providers: Petrona Naidu MD ; Jose Epps DO ; Pio Hadley, PhD ; [facility],Agency ; [facility],[place]
== END 2018-05-04 16:06 | DRG 690 ==
LOC: NEPD 12:56 → NEPFCDU 04-22 23:38 → NEPD 04-22 23:38 → NEPFCDU 04-23 02:44 → N07 04-29 13:13
PROVIDERS: ADMIT Hospitalist; ATTEND Hospitalist
CPT/HCPCS: 51798; 70450; 71020; 71046; 76775; 80048; 80053; 80061; 80307; 81001; 82140; 82550; 82552; 83735; 84443; 84484; 85025; 87077; 87086; 87186; 90761; 90791; 93005; 93306; 96361; 96365; 96372; 96375; 97161; 99285; G0378; G8987; J0696; J0780; J1644; J1956; J2405; J7040